=== PATIENT | female | born 1945 | race Caucasian/White ===

== ENCOUNTER 2025-02-16 10:51 | Outpatient (AMB) | payer MEDICARE, MEDICAID, SELFPAY ==
--- NOTE | 2025-02-16 10:53 | MHC.PC.OV ---
Vital Signs 02/16/25 11:02 Height 5 ft 2.2 in Weight 204 lb 8 oz BMI 37.2 BP 138/82 Blood Pressure Location Lt brachial Position Sitting Respiration 14 Pulse 61 Pulse Source Pulse Oximeter Temp 98.5 F Temp Source Oral Pulse Oximetry (%) 95 Oxygen Delivery Method Room Air Intake Visit Reasons: est care Intake Note: New patient visit Metrologist Required: No Allergies clopidogrel (From Plavix) Allergy (Severe, Verified 02/16/25 10:55) Rash Medication List - Last Reconciled 02/16/25 by Mariposa Cortes MD amlodipine 5 mg PO DAILY atorvastatin 40 mg PO DAILY blood sugar diagnostic ([employer] test strips) As directed cholecalciferol (vitamin D3) 25 mcg PO DAILY estradiol 0.01%(0.1mg/gram) 1 appful vaginal .three times a week ezetimibe 10 mg PO DAILY famotidine 20 mg PO BID glipizide ER 10 mg PO BID ketoconazole 2% topical losartan 50 mg PO DAILY rivaroxaban (Xarelto) 20 mg PO DAILY sotalol 80 mg PO BID Tobacco use date assessed: 02/16/25 Fall risk assessment: No Falls in past year Dental Screening Dental Screen Date: 02/16/25 Did you have a dental visit in the last 12 months?: No Did you have a dental problem in the last 6 months where you did not have access to dental care?: No Was dental information given to patient?: Patient declined HPI HPI Comments History of Present Illness Details 79 year old female with past medical history of diabetes, atrial fibrillation, CAD s/p PCI, hypertension presenting to [facility]. Transferring fertile. Have not received records CV: Follows with [facility], Dr Kang. On zetia, amlodipine, atorvastatin, losartan, sotalol and xarelto DM: On glipizide 10mg twice daily. Previous history of cataract surgery. Vision is still impaired Mammo: No longer completing Colonoscopy: No longer doing ROS CONSTITUTIONAL: Denies weight loss, fever and chills. HEENT: Denies changes in vision and hearing. RESPIRATORY: Denies SOB and cough. CV: Denies palpitations and CP GI: Denies abdominal pain, nausea, vomiting and diarrhea. : Denies dysuria and urinary frequency. MSK: Denies new myalgia and joint pain. SKIN: Denies rash and pruritus. NEUROLOGICAL: Denies headache PSYCHIATRIC: Denies recent changes in mood. PHYSICAL EXAM: GENERAL: Alert and oriented x 3. NAD EYES: EOMI. Anicteric. HENT: Moist mucous membranes. No scleral icterus. No cervical lymphadenopathy. LUNGS: Clear to auscultation bilaterally. CARDIOVASCULAR: Regular rate and rhythm. No murmur. No JVD. ABDOMEN: Soft, non-tender +bs EXTREMITIES: No edema. Non-tender. SKIN: No rashes or lesions. Warm. NEUROLOGIC: No focal neurological deficits. CN II-XII grossly intact PSYCHIATRIC: Cooperative. Appropriate mood and affect [facility] Surgical History History of ankle surgery History of cataract surgery History of coronary artery stent placement Hx of appendectomy H/O tubal ligation H/O section Family History Daughter Substance abuse Social History Housing: Apartment Alcohol intake: never Patient Tobacco Use Status: Former Tobacco user (quit in 1999) Years Smoked: 6 service: No Current occupational status: retired Cognitive needs: No Hearing needs: No Vision needs: Yes Questionnaire PHQ-9 Over the last 2 weeks, how often have you been bothered by any of the following problems? 1. Little interest or pleasure in doing things: not at all 2. Feeling down, depressed, or hopeless: not at all 3. Trouble falling or staying asleep, or sleeping too much: not at all 4. Feeling tired or having little energy: nearly every day 5. Poor appetite or overeating: not at all 6. Feeling bad about yourself - or that you are a failure or have let yourself or your family down: not at all 7. Trouble concentrating on things, such as reading the newspaper or watching television: not at all 8. Moving or speaking so slowly that other people could have noticed. Or the opposite - being so fidgety or restless that you have been moving around a lot more than usual: not at all 9. Thoughts that you would be better off or of hurting yourself in some way: not at all Total score: 3 Depression Screening Interpretation: Negative Depression Screening Done: Yes 45314 - PHQ-9 Billing: Yes Source: Developed by Drs. Adrian Chen, Tabatha Agiulera, Leodan Gomez and colleagues, with an educational allie from [employer]. Thrive Questionnaire I am a: Patient What is your living situation today?: I have a steady place to live Within the past 12 months, did the food you bought not last and you didn't have the money to get more?: Often true Within the past 12 months, did you worry whether your food would run out before you got money to buy more?: Sometimes True Do you have trouble paying for medicines?: No Do you have trouble getting transportation to medical appointments?: No Do you have trouble paying your heating and electricity bill?: Yes Do you have trouble taking care of your child, family member or friend?: No Do you have trouble with day-to-day activities such as bathing, preparing meals, shopping, managing finances, etc.?: No Are you currently unemployed and looking for a job?: No Are you interested in more education?: No Please select the resources that you would like help with: Food and Utilities Currently or been in a relationship where the following occur: No concerns reported THRIVE Score: 3 AUDIT C Alcohol Use Questionnaire (AUDIT-C) 1. How often do you have a drink containing alcohol?: Never Total Score: 0 AUSTYN-7 AMB Questionnaire AUSTYN-7 Feeling nervous, anxious, or on edge: 0 = Not at all Not being able to stop or control worryin = Not at all Worrying too much about different things: 0 = Not at all Trouble relaxin = Not at all Being so restless that it is hard to sit still: 0 = Not at all Becoming easily annoyed or irritable: 0 = Not at all Feeling afraid as if something awful might happen: 0 = Not at all Total AUSTYN-7 score (0-4 normal; 5-9 mild; 10-14 moderate; 15-21 severe): 0 Source: Developed by Drs. Adrian Chen, Leodan Ledesma and colleagues, with an educational allie from [employer]. Physical exam (Primary Care) Vital Signs: Last Vital Signs Temp 98.5 F 02/16/25 11:02 Pulse 61 02/16/25 11:02 Resp 14 02/16/25 11:02 BP 138/82 02/16/25 11:02 Pulse Ox 95 02/16/25 11:02 Oxygen Delivery Method Room Air 02/16/25 11:02 BMI result Body Mass Index 37.2 Tobacco/Smoking Status: Tobacco use Status Tobacco use date assessed 02/16/25 02/16/25 10:57 Patient Tobacco Use Status Former Tobacco user (quit in 02/16/25 11:01 1999) PHQ-9: PHQ-9 Score PHQ-9: Total score 3 02/16/25 11:09 Depression Screening Interpretation: Negative Currently or been in a relationship where the following occur: No concerns reported Coding Level of Care Code New Pt Level 4 (34454) Complex EM visit Add On G2211 Diagnoses Paroxysmal atrial fibrillation I48.0 Atrial fibrillation type: paroxysmal History of coronary artery stent placement Z95.5 Type 2 diabetes mellitus with diabetic cataract, 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 Diabetes mellitus type: type 2 Diabetes mellitus residential insulin use: without residential use Diabetes mellitus complication status: with ophthalmic complications Diabetes mellitus complication detail: with cataract Additional Codes PHQ-9 - 10045 - PHQ-9 Billing: Yes ([id number]) Assessment & Plan Assessment & Plan (1) Atrial fibrillation: Code(s): I48.91 - Unspecified atrial fibrillation Category: Medical Qualifiers: Atrial fibrillation type: paroxysmal Qualified Code(s): I48.0 - Paroxysmal atrial fibrillation (2) History of coronary artery stent placement: Code(s): Z95.5 - Presence of coronary angioplasty implant and graft Category: Surgical (3) Diabetes: Code(s): E11.9 - Type 2 diabetes mellitus without complications Category: Medical Qualifiers: Diabetes mellitus type: type 2 Diabetes mellitus residential insulin use: without residential use Diabetes mellitus complication status: with ophthalmic complications Diabetes mellitus complication detail: with cataract Qualified Code(s): E11.36 - Type 2 diabetes mellitus with diabetic cataract Plan 79 year old to establish care. Past medical, surgical, social and amily history reviewd Labs due and ordered CAD-BP controlled on current medications Orders: Orders Hemoglobin A1c Today E11.9 - Type 2 diabetes mellitus without complications, I48.91 - Unspecified atrial fibrillation Comprehensive Met. Panel Today E11.9 - Type 2 diabetes mellitus without complications, I48.91 - Unspecified atrial fibrillation Complete Blood Count Auto Diff Today E11.9 - Type 2 diabetes mellitus without complications, I48.91 - Unspecified atrial fibrillation, Z13.0 - Encounter for screening for diseases of the blood and blood-forming organs and certain disorders involving the immune mechanism, Z95.5 - Presence of coronary angioplasty implant and graft Comprehensive Met. Panel Today E11.9 - Type 2 diabetes mellitus without complications, I48.91 - Unspecified atrial fibrillation, Z13.0 - Encounter for screening for diseases of the blood and blood-forming organs and certain disorders involving the immune mechanism, Z95.5 - Presence of coronary angioplasty implant and graft Lipid Panel Today E11.9 - Type 2 diabetes mellitus without complications, I48.91 - Unspecified atrial fibrillation, Z13.0 - Encounter for screening for diseases of the blood and blood-forming organs and certain disorders involving the immune mechanism, Z95.5 - Presence of coronary angioplasty implant and graft Hemoglobin A1c Today E11.9 - Type 2 diabetes mellitus without complications, I48.91 - Unspecified atrial fibrillation, Z13.0 - Encounter for screening for diseases of the blood and blood-forming organs and certain disorders involving the immune mechanism, Z95.5 - Presence of coronary angioplasty implant and graft Microalbumin, Random (w Creat) Today E11.9 - Type 2 diabetes mellitus without complications, I48.91 - Unspecified atrial fibrillation, Z13.0 - Encounter for screening for diseases of the blood and blood-forming organs and certain disorders involving the immune mechanism, Z95.5 - Presence of coronary angioplasty implant and graft Medications: New estradiol 0.01%(0.1mg/gram) 1 appful vaginal .three times a week 42.5 grams 3RF
[2025-02-16 11:02] VITALS: BP 138/82; PULSE 61; RESP 14; TEMP 36.9; O2SAT 95; BMI 37.2
--- OUTSIDE RECORDS SUMMARY | 2025-02-16 12:08 | XMS_ITS | Clinical Summary ---
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 180 capsule 1 4 Active ezetimibe (ZETIA) 10 mg tablet Take 1 tablet (10 mg total) by mouth 1 (one) time each day. 90 tablet 1 4 Active losartan (COZAAR) 50 mg tablet TAKE 1 TABLET BY MOUTH EVERY DAY 90 tablet 2 4 Active ketoconazole (NIZORAL) 2 % shampoo Use for 3 times weekly as needed for itching 120 mL 5 4 Active amLODIPine (NORVASC) 5 mg tabletIndications :Other secondary hypertension TAKE 1 TABLET BY MOUTH EVERY DAY 90 tablet 1 5 Active rivaroxaban (XARELTO) 20 mg tablet Take 1 tablet (20 mg total) by mouth 1 (one) time each day with dinner. Take with food. Active atorvastatin (LIPITOR) 10 mg tablet Take 1 tablet (10 mg total) by mouth at bedtime. Active sotaloL (BETAPACE) 80 mg tablet Take 1 tablet (80 mg total) by mouth 2 (two) times a day. 180 tablet 3 5 12/24/19 26 Active glipiZIDE (GLUCOTROL XL) 10 mg 24 hr tablet TAKE 1 TABLET BY MOUTH TWICE A DAY 60 tablet 5 Active famotidine (PEPCID) 20 mg tablet TAKE 1 TABLET BY MOUTH TWICE A DAY 180 tablet 5 Active atorvastatin (LIPITOR) 40 mg tablet TAKE 1 TABLET BY MOUTH EVERY DAY 90 tablet 5 Active famotidine (PEPCID) 20 mg tablet Take 1 tablet (20 mg total) by mouth 2 (two) times a day. 5 01/29/20 25 Discontinu ed(Melanielica te order) Active Problems Problem Noted Date Diagnosed Date SOB (shortness of breath) 12/09/2024 A-fib (CMS/HCC V24, CMS/HCC V28) 12/09/2024 Assessment & Plan (01/07/2025 11:38 AM EDT): Patient denies perception of recurrence of arrhythmia since she was last in our office. She will continue on her current dose of sotalol 80 mg twice daily. She continues to be anticoagulated with Xarelto for stroke reduction. Educated on risks and benefits of continuing with anticoagulation including increased risk for hemorrhage and decreased risk for stroke. Encouraged to seek emergent medical attention should the patient sustain a fall involving a head strike. The patient understands these risks and agrees to continue. Orders: ECG 12 lead Assessment & Plan (12/09/2024 4:17 PM EDT): Presents in atrial fibrillation with a heart rate of [address] Rock and agreed to increase sotalol dose to 120mg twice daily. This was sent to her pharmacy of choice. We will also restore sinus rhythm in the form of a cardioversion to be scheduled on Saturday with Dr. Kang. The patient ensures me she has absolutely not had any interruption in her anticoagulation therapy for greater than 4 weeks. I instructed the patient to go to the emergency room should she begin to experience worsening symptoms of dizziness lightheadedness, presyncope, syncope, palpitations, chest discomfort or breathlessness. She understands. I have given her lab slips to have preprocedure blood work drawn prior to her procedure on Saturday. I spoke to Bernardo who will reach out to the patient to get everything scheduled. Educated on risks and benefits of continuing with anticoagulation including increased risk for hemorrhage and decreased risk for stroke. Encouraged to seek emergent medical attention should the patient sustain a fall involving a head strike. The patient understands these risks and agrees to continue. Orders: sotaloL (Betapace) 120 mg tablet; Take 1 tablet (120 mg total) by mouth every 12 (twelve) hours. Basic metabolic panel; Future CBC and differential; Future Prothrombin time with INR; Future Cardioversion external; Future Primary hypertension 12/09/2024 Assessment & Plan (01/07/2025 11:38 AM EDT): Well-controlled during today's exam with a reading of 124/70. I am making no changes to her antihypertensive medications and she will continue on her current dose of amlodipine 5 mg as well as losartan 50 mg. Educated on the importance of diet lifestyle to help further assist in reducing blood pressure. The patient was encouraged to follow low-salt low-fat diet, make purposeful strides towards weight loss, and engage in routine aerobic exercise as tolerated. Assessment & Plan (12/09/2024 4:17 PM EDT): Mildly elevated during today's exam with reading of 142/90 however the patient does endorse significant anxiety being in the office. She will continue on her current dose of losartan and amlodipine. Educated on the importance of diet lifestyle to help further assist in reducing blood pressure. The patient was encouraged to follow low-salt low-fat diet, make purposeful strides towards weight loss, and engage in routine aerobic exercise as tolerated. Encounters Date Type Department Care Team Description 01/07/2025 11:10 AM EDT Office Visit [facility] Cardiology [facility] [address] [place] [id number] Leanne Ricci NP Paroxysmal atrial fibrillation (CMS/HCC V24, CMS/HCC V28) (Primary Dx); Primary hypertension 12/09/2024 2:10 PM EDT Office Visit [facility] Cardiology [facility] [address] [place] [id number] Leanne Ricci NP Tachycardia (Primary Dx); Paroxysmal atrial fibrillation (CMS/HCC V24, CMS/HCC V28); Primary hypertension 12/09/2024 Telephone [facility] Cardiology [facility] [address] [place] [address] Diogenes Zarate MD 12/09/2024 Telephone [facility] Cardiology [facility] [address] [place] [address] Thang Kang MD Atrial Fibrillation; Shortness of Breath from Last 3 Months Surgical History Surgery Date Site/Laterality Comments CYSTOSCOPY PROCEDURE: [place] CYSTOURETHROSCOPY; COMMENT: for bladder tumor APPENDECTOMY PROCEDURE: HISTORICAL APPENDECTOMY SECTION PROCEDURE: HISTORICAL DELIVERY; COMMENT: mars Garcia ANKLE SURGERY PROCEDURE: HISTORICAL ANKLE SURGERY; COMMENT: jonny kilgore surgery COLONOSCOPY 04/20/2015 PROCEDURE: HISTORICAL COLONOSCOPY; COMMENT: jac, repeat 5 years Medical History Medical History Date Comments Hyperlipidemia 11/19/2016 DX:Hyperlipidemi a HTN (hypertension) 11/19/2016 DX:HTN (hyper tension) CAD (coronary artery disease) 11/19/2016 DX :CAD (coronary artery disease) Old [place] (myocardial infarction) 11/19/2016 D X:Old NC (myocardial infarction); COMMENT: S/p stent Vitamin D deficiency 12/23/2016 DX:Vitamin D deficiency GERD (gastroesophageal reflux disease) 7 DX:GERD (gastroesophageal reflux disease) Osteoporosis 12/23/2016 DX:Osteoporosis Atrial fibrillation (CMS/HCC V24, CMS/HCC V28) 01/21/2018 DX:Atrial fibrillation (HCC) Prediabetes 04/25/2018 DX:Prediabetes ONEIDA (obstructive sleep apnea) 04/25/2018 DX :ONEIDA (obstructive sleep apnea) Bladder cancer (CMS/HCC V24, CMS/HCC V28) 2017 DX:Bladder cancer (HCC) Family History Medical History Relation Name Comments Other: vaginal cancer Daughter 1 Coronary artery disease Daughter 2 Heart attack Father Lung cancer Mother Colon cancer Paternal Grandmother Coronary artery disease Son Heart attack Son Breast cancer Neg Hx Relation Name Status Comments Daughter 1 Daughter 2 Alive Father Mother Paternal Grandmother Son Alive Social History Tobacco Use Types Packs/Day Years Used Date Smoking Tobacco: Former Cigarettes Q uit: 07/29/1999 Smokeless Tobacco: Never Alcohol Use Standard Drinks/Week Comments No 0 (1 standard drink = 0.6 oz pur e alcohol) Comments Unknown Sex and Gender Information Value Date Recorded Sex Assigned at Female 06/17/2024 9:28 AM EST Legal Sex Female 8:08 PM EST Gender Identity Female 06/17/2024 9:28 AM EST Sexual Orientation Not on file Obstetrics History Last Filed Vital Signs Vital Sign Reading Time Taken Comments Blood Pressure 124/70 01/07/2025 11:16 AM EDT Pulse 59 01/07/2025 11:16 AM EDT Temperature - - Respiratory Rate - - Oxygen Saturation 92% 01/07/2025 11:16 AM EDT Inhaled Oxygen Concentration - - Weight 92.5 kg (204 lb) 01/07/2025 11:16 AM EDT Height 160 cm (5' 3 ) 01/07/2025 11:16 AM EDT Body Mass Index 36.14 01/07/2025 11:16 AM EDT Plan of Treatment Health Maintenance Due Date Last Done Comments Diabetes: Annual GFR (Glomerular Filtration Rate) 1946 Diabetes: Annual Foot Exam 1956 Diabetes: Annual Retina Eye Exam 1956 Zoster Vaccines (1 of 2) 1965 RSV Immunization Adult Patients (1 - 1-dose 75+ series) 2021 Cholesterol Screening (Lipid Panel) 07/07/2022 Falls Risk Assessment 07/07/2022 Hepatitis C Screening 07/07/2022 Medicare Annual Wellness Visit 07/07/2022 Social Influencers of Health Screening 07/07/2022 Diabetes: Annual Urine Albumin-Creatinine Ratio (uACR) 07/08/2022 Diabetes: Blood Sugar Control Test (HGBA1C) 07/08/2022 Hypertension/CHF/CAD Annual BMP Blood Test 07/08/2022 COVID-19 Vaccine ( season) 2024 11/05/2021, 10/12/2021, 11/27/2020, Additional history exists Depression Screening 07/29/2024 Influenza Vaccine (#1) 2025 , 05/07/2022, 06/09/2021, Additional history exists Osteoporosis Screening (Bone Density Screening) 02/21/2027 02/21/2017 DTaP,Tdap,and Td Vaccines (2 - Td or Tdap) 04/25/2028 04/25/2018 Pneumococcal Vaccine: 50+ Years Completed 04/25/2018, 03/30/2015 HIB Vaccines Aged Out No longer eligi ble based on patient's age to complete this topic HPV Vaccines Aged Out No longer eligi ble based on patient's age to complete this topic Hepatitis A Vaccines Aged Out No long er eligible based on patient's age to complete this topic Hepatitis B Vaccines Aged Out No long er eligible based on patient's age to complete this topic IPV Vaccines Aged Out No longer eligi ble based on patient's age to complete this topic MMR Vaccines Aged Out No longer eligi ble based on patient's age to complete this topic Meningococcal ACWY Vaccine Aged Out N o longer eligible based on patient's age to complete this topic Meningococcal B Vaccine Aged Out No l onger eligible based on patient's age to complete this topic RSV Immunization Patients Under 20 months Aged Out No longer eligible based on patient's age to complete this topic Varicella Vaccines Aged Out No longer eligible based on patient's age to complete this topic Procedures Procedure Name Priority Date/Time Associated Diagnosis Comments ECG 12-LEAD Routine 01/07/2025 11:38 AM EDT Paroxysmal atrial fibrillation (CMS/HCC V24, CMS/HCC V28) ECG 12-LEAD Routine 12/09/2024 4:17 PM EDT Tachycardia EXTERNAL CLINICAL LAB Routine 12/09/2024 9:07 AM EDT DXA BONE DENSITY STUDY 1+ SITS AXIAL SKEL Routine 02/21/2017 4:08 PM EDT Age-related osteoporosis without current pathological fracture from Last 3 Months or Most Recently Relevant to Health Maintenance Results * ECG 12 lead (01/07/2025 11:38 AM EDT) Only the most recent of2 resultswithin the time period is included. Ventricular Rate ECG 59 BPM GEMUSE Atrial Rate 59 BPM GEMUSE P-R Interval 162 ms GEMUSE QRS Duration 78 ms GEMUSE Q-T Interval 454 ms GEMUSE QTc 449 ms GEMUSE P Wave Wanda 59 degrees GEMUSE R Wanda 14 degrees GEMUSE T Wanda 46 degrees GEMUSE ECG Interpretation Sinus bradycardia Low voltage QRS Nonspecific T wave abnormality Abnormal ECG When compared with ECG of 09-DEC-2024 14:13, Sinus rhythm has replaced Atrial fibrillation Vent. rate has decreased BY 44 BPM Nonspecific T wave abnormality no longer evident in Inferior leads Nonspecific T wave abnormality no longer evident in Lateral leads QT has lengthened Confirmed by MD Kang Christopher ([id number]) on 01/11/2025 9:34:00 AM GEMUSE 01/07/2025 11:2 1 AM EDT 01/11/2025 9:34 AM EDT Leanne Ricci NP ECG ORDERABLES Edited Result - Final GEMUSE * External clinical lab (12/09/2024 9:07 AM EDT) Historical Provider LAB BLOOD ORDERABLES Edit ed Result - Final * DXA BONE DENSITY STUDY 1+ SITS AXIAL SKEL (02/21/2017 4:08 PM EDT) Anatomical Region Laterality Modality Bone Densitometr y 01/21/2017 1:33 PM EDT Narrative 02/22/2017 1:06 PM EDT BONE DENSITY Lumbar Spine T-score is -1.2 (SD relative to 20-29 y/o adult) Z-score is +1.0 (SD relative to age matched peers) This is consistent with osteopenia by criteria defined by the WHO. Left Hip T-score is -3.1 Z-score is -1.2 This is consistent with osteoporosis by criteria defined by the WHO. Impression: Based on the World Health Organization criteria, Precious Glover should be classified as having osteoporosis. [facility] Department of Internal Medicine recommends using National Osteoporosis Foundation (NOF) guidelines in treatment decisions related to osteoporosis. NOF guidelines suggest considering treatment for postmenopausal women and men aged 50 or older presenting with the following: History of hip or vertebral fracture. T-score less than or equal to -2.5 (DXA) at the femoral neck, total hip, or spine, after appropriate evaluation to exclude secondary causes. Low bone mass (T-score between -1.0 and -2.5 at the femoral neck or spine) AND a 10-year probability of a hip fracture greater than or equal to 3% OR a 10-year probability of a major osteoporosis-related fracture greater than or equal to 20% based on the [place]-adapted WHO algorithm Please note that all treatment decisions require clinical judgment and consideration of individual patient factors, including patient preferences, co-morbidities, previous drug use, risk factors not captured in the FRAX model (e.g., frailty, falls, vitamin D deficiency, increased bone turnover, interval significant decline in bone density) and possible under- or over-estimation of fracture risk by FRAX. Procedure Note Neville Smith MD - 08/30/2023 BONE DENSITY Lumbar Spine T-score is -1.2 (SD relative to 20-29 y/o adult) Z-score is +1.0 (SD relative to age matched peers) This is consistent with osteopenia by criteria defined by the WHO. Left Hip T-score is -3.1 Z-score is -1.2 This is consistent with osteoporosis by criteria defined by the WHO. Impression: Based on the World Health Organization criteria, Precious Glover should beclassified as having osteoporosis. [facility] Department of Internal Medicine recommendsusing National Osteoporosis Foundation (NOF) guidelines in treatmentdecisions related to osteoporosis. NOF guidelines suggest consideringtreatment for postmenopausal women and men aged 50 or older presentingwith the following: History of hip or vertebral fracture. T-score less than or equal to -2.5 (DXA) at the femoral neck, total hip,or spine, after appropriate evaluation to exclude secondary causes. Low bone mass (T-score between -1.0 and -2.5 at the femoral neck or spine)AND a 10-year probability of a hip fracture greater than or equal to 3% ORa 10-year probability of a major osteoporosis-related fracture greaterthan or equal to 20% based on the [place]-adapted WHO algorithm Please note that all treatment decisions require clinical judgment andconsideration of individual patient factors, including patientpreferences, co-morbidities, previous drug use, risk factors not capturedin the FRAX model (e.g., frailty, falls, vitamin D deficiency, increasedbone turnover, interval significant decline in bone density) and possibleunder- or over-estimation of fracture risk by FRAX. 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
== END 2025-02-16 11:20 | disposition home or self-care (01) ==
LOC: HO.HMCFM 10:52
PROVIDERS: PCP Internal Medicine; Visit Provider Internal Medicine
DX: I48.0 Paroxysmal atrial fibrillation (principal); Z95.5 Presence of coronary angioplasty implant and graft; E11.36 Type 2 diabetes mellitus with diabetic cataract

== ENCOUNTER 2025-02-16 11:28 | Outpatient (REF) | payer MEDICARE, SELFPAY ==
[2025-02-16 14:26] LABS: Hemoglobin A1C 203.6881 umol/L; Total Hemoglobin (HGBA1C) 3526.6149 umol/L
[2025-02-16 14:48] LABS: Alanine Aminotransferase 17 U/L (0-31); Albumin Level 4.2 g/dL (3.5-5.0); Alkaline Phosphatase 110 U/L (39-117); Anion Gap 10 (12-20); Aspartate Amino Transferase 23 U/L (5-31); Blood Urea Nitrogen 15 mg/dL (9-16); Calcium 8.9 mg/dL (8.4-10.2); Carbon Dioxide 26 mmol/L (22-29); Chloride 108 mmol/L (96-108); Cholesterol 117 mg/dL (<200); Estimated Glomerular Filt Rate > 60; HDL Cholesterol 39 mg/dL (>40); Potassium 4.2 mmol/L (3.3-5.1); Sodium 140 mmol/L (135-145); Total Protein 7.1 g/dL (6.5-8.0); Triglycerides 104 mg/dL (<150)
[2025-02-16 15:00] LABS: Microalbum/Creatinine Ratio Ur 38.8 ug/mg cr (<30)
== END 2025-02-16 11:29 | disposition home or self-care (01) ==
LOC: HO.WFDLDS 11:28
PROVIDERS: Visit Provider Internal Medicine
DX: I48.0 Paroxysmal atrial fibrillation (principal); E11.36 Type 2 diabetes mellitus with diabetic cataract; Z95.5 Presence of coronary angioplasty implant and graft; Z13.31 Encounter for screening for depression; Z13.0 Encounter for screening for diseases of the blood and blood-forming organs and certain disorders involving the immune mechanism
CPT/HCPCS: 36415; 80053; 80061; 82043; 82570; 83036; 96127; 99202

== ENCOUNTER 2025-05-17 07:44 | Outpatient (REF) | payer MEDICARE, MEDICAID, SELFPAY ==
--- OUTSIDE RECORDS SUMMARY | 2025-05-17 07:49 | XMS_ITS | Clinical Summary ---
Author Organization [address] [place] [address] [place] [phone] Phone Care Team Providers Care Camp Program Director Name Role Phone Mariposa Cortes MD Primary Care Provider Allergies Active Allergy Reactions Criticality Noted Date Comments Clopidogrel 11/19/2016 Swelling,, rash Medications docusate sodium (COLACE) 100 mg capsule TAKE 1 TABLET BY MOUTH 2 TIMES DAILY NEEDED (CONSTIPATI ON). 180 capsule 1 07/03/20 24 Active ezetimibe (ZETIA) 10 mg tablet Take 1 tablet (10 mg total) by mouth 1 (one) time each day. 90 tablet 1 07/03/20 24 Active losartan (COZAAR) 50 mg tablet TAKE 1 TABLET BY MOUTH EVERY DAY 90 tablet 2 07/02/20 24 Active ketoconazole (NIZORAL) 2 % shampoo Use for 3 times weekly as needed for itching 120 mL 5 07/02/20 24 Active amLODIPine (NORVASC) 5 mg tabletIndication s:Other secondary hypertension TAKE 1 TABLET BY MOUTH EVERY DAY 90 tablet 1 09/29/19 25 Active atorvastatin (LIPITOR) 10 mg tablet Take 1 tablet (10 mg total) by mouth at bedtime. Active sotaloL (BETAPACE) 80 mg tablet Take 1 tablet (80 mg total) by mouth 2 (two) times a day. 180 tablet 3 12/24/19 25 026 Active glipiZIDE (GLUCOTROL XL) 10 mg 24 hr tablet TAKE 1 TABLET BY MOUTH TWICE A DAY 60 tablet 01/14/20 25 Active famotidine (PEPCID) 20 mg tablet TAKE 1 TABLET BY MOUTH TWICE A DAY 180 tablet 01/29/20 25 Active atorvastatin (LIPITOR) 40 mg tablet TAKE 1 TABLET BY MOUTH EVERY DAY 90 tablet 02/05/20 25 Active Xarelto 20 mg tablet TAKE 1 TABLET BY MOUTH EVERY DAY 90 tablet 3 05/11/20 25 Active rivaroxaban (XARELTO) 20 mg tablet Take 1 tablet (20 mg total) by mouth 1 (one) time each day with dinner. Take with food. 025 Discontinued Active Problems Problem Noted Date Diagnosed Date SOB (shortness of breath) 12/09/2024 A-fib ([facility] V24, [facility] V28) 12/09/2024 Assessment & Plan (01/07/2025 11:38 [...] Encounters Date Type Department Care Team Description 05/11/2025 Telephone [facility] [address] [facility] [address] [place] [address] Thang Kang MD from Last 3 Months Surgical History Surgery Date Site/Laterality Comments CYSTOSCOPY PROCEDURE: [place] CYSTOURETHROSCOPY; COMMENT: for bladder tumor APPENDECTOMY PROCEDURE: HISTORICAL APPENDECTOMY SECTION PROCEDURE: HISTORICAL DELIVERY; COMMENT: times 2 ANKLE SURGERY PROCEDURE: HISTORICAL ANKLE SURGERY; COMMENT: jonny kilgore surgery COLONOSCOPY 04/20/2015 PROCEDURE: HISTORICAL COLONOSCOPY; COMMENT: tics, repeat 5 years Medical History Medical History Date Comments Hyperlipidemia 11/19/2016 DX:Hyperlipidemi a HTN (hypertension) 11/19/2016 DX:HTN (hyper tension) CAD (coronary artery disease) 11/19/2016 DX :CAD (coronary artery disease) Old CT (myocardial infarction) 11/19/2016 D X:Old CT (myocardial infarction); COMMENT: S/p stent Vitamin D deficiency 12/23/2016 DX:Vitamin D deficiency GERD (gastroesophageal reflux disease) DX:GERD (gastroesophageal reflux disease) Osteoporosis 12/23/2016 DX:Osteoporosis Atrial fibrillation ([facility] V24, [facility] V28) 01/21/2018 DX:Atrial fibrillation (HCC) Prediabetes 04/25/2018 DX:Prediabetes ONEIDA (obstructive sleep apnea) 04/25/2018 DX :ONEIDA (obstructive sleep apnea) Bladder cancer ([facility] V24, [facility] V28) 2017 DX:Bladder cancer (HCC) Family History [...] 07/08/2022 Hypertension/CHF/CAD Annual BMP Blood Test 07/08/2022 Depression Screening 07/29/2024 COVID-19 Vaccine ( season) 2025 11/05/2021, 10/12/2021, 11/27/2020, Additional history exists Influenza Vaccine (#1) 2025 , 05/07/2022, 06/09/2021, [...] Procedure Name Priority Date/Time Associated Diagnosis Comments DXA BONE DENSITY STUDY 1+ SITS AXIAL SKEL Routine 02/21/2017 4:08 PM EDT Age-related osteoporosis without current pathological fracture from Last 3 Months or Most Recently Relevant to Health Maintenance Results * DXA BONE DENSITY STUDY 1+ SITS [...] should be classified as having osteoporosis. [facility] Department of Internal Medicine recommends using [...] on the World Health Organization criteria, Precious Phillysher should beclassified as having osteoporosis. [facility] Department of Internal Medicine recommendsusing National [...] Insurance MEDICARE MEDICAID - [place] Care Teams Camp Program Director Relationship Specialty Start Date End Date Mariposa Cortes MD PCP - General Internal Medicine 12/09/24
--- OUTSIDE RECORDS SUMMARY | 2025-05-17 07:49 | XMS_ITS ---
Author Name [facility] Organization Unknown Care Team Organization Name Specialty Phone Email Start Date End Da te [facility] 03/17/2025 [facility] Organization Jaja Yee MD Primary Care 06/05/2022 03/16/2024
[2025-05-17 11:10] LABS: MANUAL DIFF FLAG NO
[2025-05-17 11:15] LABS: Hematocrit 40.4 % (37.0-47.0); Hemoglobin 13.4 g/dl (12.0-16.0); Imm Gran Abs Auto 0.02 X10*3/uL (0.00-0.03); Imm Gran Pct Auto 0.2 % (0.0-0.4); Lymphocytes Absolute Auto 2.7 X10*3/uL (1.2-4.9); Mean Corpuscular HGB Conc 33.2 g/dl (31.0-35.0); Mean Corpuscular Hemoglobin 30.9 pg (27.0-33.0); Mean Corpuscular Volume 93.3 fL (80.0-98.0); NRBC Abs Auto 0.000 X10*3/uL (0.0-0.012); NRBC Pct Auto 0.0 /100WBC (0.0-0.2); Platelet Count 305 X10*3/uL (160-400); Red Blood Count 4.33 X10*6/uL (4.20-5.50); White Blood Count 8.3 X10*3/uL (4.8-10.8)
[2025-05-17 11:51] LABS: Alanine Aminotransferase 16 U/L (0-31); Albumin Level 4.0 g/dL (3.5-5.0); Alkaline Phosphatase 111 U/L (39-117); Anion Gap 13 (12-20); Aspartate Amino Transferase 21 U/L (5-31); Blood Urea Nitrogen 14 mg/dL (9-16); Calcium 8.5 mg/dL (8.4-10.2); Carbon Dioxide 23 mmol/L (22-29); Chloride 108 mmol/L (96-108); Estimated Glomerular Filt Rate > 60; Potassium 4.0 mmol/L (3.3-5.1); Sodium 140 mmol/L (135-145); Total Protein 6.9 g/dL (6.5-8.0)
== END 2025-05-17 07:45 | disposition home or self-care (01) ==
LOC: HO.WFDLDS 07:44
PROVIDERS: Visit Provider Internal Medicine
DX: Z13.0 Encounter for screening for diseases of the blood and blood-forming organs and certain disorders involving the immune mechanism (principal); E11.9 Type 2 diabetes mellitus without complications; I48.91 Unspecified atrial fibrillation; Z95.5 Presence of coronary angioplasty implant and graft
CPT/HCPCS: 36415; 80053; 83036; 85025

== ENCOUNTER 2025-05-24 13:44 | Outpatient (AMB) | payer MEDICARE, MEDICAID, SELFPAY ==
--- NOTE | 2025-05-24 13:57 | A.OFFPC_ITS ---
Vital Signs 05/24/25 14:02 Height 5 ft 2.2 in Weight 203 lb BMI 36.9 BP 112/64 Blood Pressure Location Rt brachial Position Sitting Respiration 14 Pulse 58 Pulse Source Pulse Oximeter Temp 98 F Temp Source Oral Pulse Oximetry (%) 95 Oxygen Delivery Method Room Air Intake Visit Reasons: 3 mos Intake Note: 3 mos f/u Mallet And Die Cutter Required: No Allergies clopidogrel (From Plavix) Allergy (Severe, Verified 05/24/25 13:59) Rash Tobacco use date assessed: 05/24/25 Fall risk assessment: No Falls in past year Last assessed Fall Risk: 05/24/25 Dental Screening Dental Screen Date: 05/24/25 Did you have a dental visit in the last 12 months?: No Did you have a dental problem in the last 6 months where you did not have access to dental care?: No Was dental information given to patient?: No HPI HPI Comments History of Present Illness Details 79 year old female with past medical his tory of diabetes, atrial fibrillation, CAD s/p PCI, hypertension presenting for follow up. Have not received records from [facility] CV: Follows with [facility], Dr Kang. On zetia, amlodipine, atorvastatin, losartan, sotalol and xarelto DM: On glipizide 10mg twice daily. A1C 7.9%. Previous history of cataract surgery. Vision is still impaired. Was previously on metformin but had GI side effects-diarrhea. She does not remember her previous dosing Since constipated. some small BM Prune juice, fruits. Tried colace, dulcolax Mammo: No longer completing Colonoscopy: No longer doing ROS CONSTITUTIONAL: Denies weight loss, fever and chills. HEENT: Denies changes in vision and hearing. RESPIRATORY: Denies SOB and cough. CV: Denies palpitations and CP GI: see HPI : Denies dysuria and urinary frequency. MSK: Denies new myalgia and joint pain. SKIN: Denies rash and pruritus. NEUROLOGICAL: Denies headache PSYCHIATRIC: Denies recent changes in mood. PHYSICAL EXAM: GENERAL: Alert and oriented x 3. NAD EYES: EOMI. Anicteric. HENT: Moist mucous membranes. No scleral icterus. No cervical lymphadenopathy. LUNGS: Clear to auscultation bilaterally. CARDIOVASCULAR: Regular rate and rhythm. No murmur. No JVD. ABDOMEN: Soft, non-tender +bs EXTREMITIES: No edema. Non-tender. SKIN: No rashes or lesions. Warm. NEUROLOGIC: No focal neurological deficits. CN II-XII grossly intact PSYCHIATRIC: Cooperative. Appropriate mood and affect [facility] Surgical History History of ankle surgery History of cataract surgery History of coronary artery stent placement Hx of appendectomy H/O tubal ligation H/O section Family History Daughter Substance abuse Social History Housing: Apartment Alcohol intake: never Patient Tobacco Use Status: Former Tobacco user (quit in 1999) Years Smoked: 6 e-Cigarette/Vaping Use: Never Used service: No Current occupational status: retired Cognitive needs: No Hearing needs: No Vision needs: Yes Questionnaire Thrive Questionnaire Date Thrive assessed: 02/16/25 I am a: Patient What is your living situation today?: I have a steady place to live Within the past 12 months, did the food you bought not last and you didn't have the money to get more?: Often true Within the past 12 months, did you worry whether your food would run out before you got money to buy more?: Sometimes True Do you have trouble paying for medicines?: No Do you have trouble getting transportation to medical appointments?: No Do you have trouble paying your heating and electricity bill?: Yes Do you have trouble taking care of your child, family member or friend?: No Do you have trouble with day-to-day activities such as bathing, preparing meals, shopping, managing finances, etc.?: No Are you currently unemployed and looking for a job?: No Are you interested in more education?: No Currently or been in a relationship where the following occur: No concerns reported THRIVE Score: 3 Physical exam (Primary Care) Vital Signs: Last Vital Signs Temp 98 F 05/24/25 14:02 Pulse 58 05/24/25 14:02 Resp 14 05/24/25 14:02 BP 112/64 05/24/25 14:02 Pulse Ox 95 05/24/25 14:02 Oxygen Delivery Method Room Air 05/24/25 14:02 BMI result Body Mass Index 36.9 Tobacco/Smoking Status: Tobacco use Status Tobacco use date assessed 05/24/25 05/24/25 14:04 Patient Tobacco Use Status Former Tobacco user (quit in 05/24/25 14:04 1999) e-Cigarette/Vaping Use Never Used 05/24/25 14:04 Thrive Assessment: Date of Thrive Assessment Date Thrive assessed 02/16/25 05/24/25 14:04 Currently or been in a relationship where the following occur: No concerns reported Coding Level of Care Code Est Pt Level 4 (01537) Complex EM visit Add On G2211 Diagnoses Type 2 diabetes mellitus with diabetic cataract, without long-term current use of insulin 36 Diabetes mellitus type: type 2 Diabetes mellitus communications tech insulin use: without communications tech use Diabetes mellitus complication status: with ophthalmic complications Diabetes mellitus complication detail: with cataract History of coronary artery stent placement Z95.5 Paroxysmal atrial fibrillation I48.0 Atrial fibrillation type: paroxysmal Assessment & Plan Assessment & Plan (1) Diabetes: Code(s): E11.9 - Type 2 diabetes mellitus without complications Category: Medical Qualifiers: Diabetes mellitus type: type 2 Diabetes mellitus fdc insulin use: without communications tech use Diabetes mellitus complication status: with ophthalmic complications Diabetes mellitus complication detail: with cataract Qualified Code(s): E11.36 - Type 2 diabetes mellitus with diabetic cataract (2) History of coronary artery stent placement: Code(s): Z95.5 - Presence of coronary angioplasty implant and graft Category: Surgical (3) Atrial fibrillation: Code(s): I48.91 - Unspecified atrial fibrillation Category: Medical Qualifiers: Atrial fibrillation type: paroxysmal Qualified Code(s): I48.0 - Paroxysmal atrial fibrillation Plan DM-uncontrolled. Add trulicity 0.75mg. Ozempic would be good for CV but requires PA. continue annual eye exam. Needs new glucometer hers has malfunctioned. T reated hypoglycemia by rules of 15s HTN/CAD-blood pressure controlled on current medications. Efforts toward weight loss Orders: Orders Microalbumin, Random (w Creat) 3 Months .36 - Type 2 diabetes mellitus with diabetic cataract Comprehensive Met. Panel 3 Months 36 - Type 2 diabetes mellitus with diabetic cataract Hemoglobin A1c 3 Months 36 - Type 2 diabetes mellitus with diabetic cataract Medications: New Accu-Chek Guide Glucose Meter (blood-glucose meter) once daily 1 ea 0RF NS E11.36 - Type 2 diabetes mellitus with diabetic cataract Accu-Chek Guide test strips (blood sugar diagnostic) once daily 100 ea 3RF NS E11.36 - Type 2 diabetes mellitus with diabetic cataract Accu-Chek Softclix Lancets (lancets) As directed 100 ea 0RF NS E11.36 - Type 2 diabetes mellitus with diabetic cataract, I48.0 - Paroxysmal atrial fibrillation, Z95.5 - Presence of coronary angioplasty implant and graft lactulose 20 grams (30 mL) PO TID PRN 473 mL 3RF constipation dulaglutide (Trulicity) 0.75 mg (0.5 mL) subcut QWEEK 2 mL 3RF
[2025-05-24 14:02] VITALS: BP 112/64; PULSE 58; RESP 14; TEMP 36.6; O2SAT 95; BMI 36.9
--- OUTSIDE RECORDS SUMMARY | 2025-05-24 17:25 | XMS_ITS | Encounter Summary ---
Author Organization [facility] Address [address] [place] [address] Care Team Providers Care Cnc Operator Name Role Phone Steffen Morrissey MD Primary Care Provider Unavailable Thang Kang MD Unavailable Cinthia Molina PA-C Unavailable Unavailab Andriy Farrell DO Primary Care Provider Unavaila John Velasquez MD Unavailable [phone] Alicia Burnham NP Unavailable [phone] Artemio Tellez Unavailable Unavailable oLu Baptiste MD Primary Care Provider Un available Encounter Details Date Type Department Care Team Description 02/24/2018 Bulldozer Mechanic Report Medical Records [address] [place] [address] Thang Kang MD 300 [facility] [address] [place] [address] Social History Tobacco Use Types Packs/Day Years Used Date Smoking Tobacco: Former Smokeless Tobacco: Never Comments:smoked x 40yrs x 1 ppd Alcohol Use Standard Drinks/Week Comments No 0 (1 standard drink = 0.6 oz pur e alcohol) Alcohol Habits Answer Date Recorded How often do you have a drin k containing alcohol? Never 08/16/2023 How many drinks containing a lcohol do you have on a typical day when you are drinking? Patient does not drink 08/16/2023 How often do you have six or more drinks on one occasion? Never 08/16/2023 Social Isolation Answer Date Recorded In a typical week, how many times do you talk on the phone with family, friends, or neighbors? More than three times a week 08/16/2023 How often do you get togethe r with friends or relatives? More than three times a week 08/16/2023 How often do you attend chur ch or orthodoxy services? Never 08/16/2023 Do you belong to any clubs o r organizations such as muslim groups, unions, fraternal or athletic groups, or school groups? No 08/16/2023 How often do you attend meet ings of the clubs or organizations you belong to? Never 08/16/2023 Are you now , , , , never or living with a partner? 08/16/2023 Physical Activity Answer Date Recorded On average, how many days pe r week do you engage in moderate to strenuous exercise (like walking fast, running, jogging, dancing, swimming, biking, or other activities that cause a light or heavy sweat)? 4 days 08/16/2023 On average, how many minutes do you engage in exercise at this level? 20 min 08/16/2023 Stress Answer Date Recorded Do you feel stress - tense, restless, nervous, or anxious, or unable to sleep at night because your mind is troubled all the time - these days? Not at all 08/16/2023 Financial Resource Strain Answer Date R ecorded How hard is it for you to pa y for the very basics like food, housing, medical care, and heating? Not hard at all 08/16/2023 Intimate Partner Violence Answer Date R ecorded Within the last year, have y ou been afraid of your partner or ex-partner? No 08/16/2023 Within the last year, have y ou been humiliated or emotionally abused in other ways by your partner or ex-partner? No Within the last year, have y ou been kicked, hit, slapped, or otherwise physically hurt by your partner or ex-partner? No 08/16/2023 Within the last year, have y ou been raped or forced to have any kind of sexual activity by your partner or ex-partner? No 08/16/2023 Food Insecurity Answer Date Recorded Within the past 12 months, y ou worried that your food would run out before you got money to buy more. Never true 08/16/2023 Within the past 12 months, t he food you bought just didn't last and you didn't have money to get more. Never true 08/16/2023 Transportation Needs Answer Date Record ed In the past 12 months, has l ack of transportation kept you from medical appointments or from getting medications? No 07/29 In the past 12 months, has l ack of transportation kept you from meetings, work, or getting things needed for daily living? No 08/16/2023 Housing Stability Answer Date Recorded In the last 12 months, was t here a time when you were not able to pay the mortgage or rent on time? No 08/16/2023 In the last 12 months, how many places have you lived? 1 08/16/2023 In the last 12 months, was t here a time when you did not have a steady place to sleep or slept in a prison (including now)? No 08/16/2023 Sex Assigned at Date Recorded Not on file Job Start Date Occupation Industry Not on file Not on file Not on file documented as of this encounter Plan of Treatment Not on file documented as of this encounter Visit Diagnoses Not on filedocumented in this encounter Care Teams Cnc Operator Relationship Specialty Start Date End Date Steffen Morrissey MD PCP - General Internal Medicine 11/06/1607/29 Andriy Zimmerman DO [address] [address] PCP - General Internal Medicine 08/17/21 12/04/23 Lou Baptiste MD [address] [address] PCP - General Internal Medicine 12/05/23 Thang Kang MD [address] [address] Housekeeper Manager Cardiovascular Disease 08/10/20 Cinthia Molina PA-C [address] [address] Cardiology 09/05/20 03/12/24 John Burleson MD [address] [address] Specialist Cardiology 12/06/21 Alicia Burnham NP [address] [address] Cardiology 12/06/21 Artemio Tellez [address] [address] Urology 06/08/22 [facility] urology 10/26/21 documented as of this encounter
--- OUTSIDE RECORDS SUMMARY | 2025-05-24 17:25 | XMS_ITS | Encounter Summary ---
Author Organization [facility] Address [address] [place] [address] Care Team Providers Care Silverware Etcher Name Role Phone Steffen Morrissey MD Primary Care Provider Unavailable Thang Kang MD Unavailable [phone] Cinthia Molina PA-C Unavailable Unavailab Andriy Farrell DO Primary Care Provider Unavaila John Velasquez MD Unavailable [phone] Alicia Burnham NP Unavailable [phone] Artemio Tellez Unavailable Unavailable Lou Baptiste MD Primary Care Provider Un available Reason for Visit * Reason Comments E-prescribe Rx Request Encounter Details Date Type Department Care Team Description 02/27/2021 Refill Adult Medicine [address] [address] Steffen Morrissey MD E-prescribe Rx Request Social History Tobacco Use Types Packs/Day Years [...] 08/16/2023 How often do you attend chur or scientology services? Never 08/16/2023 Do you belong to any clubs o r organizations such as tenriism groups, unions, fraternal or athletic groups, or [...] place to sleep or slept in a m[facility]p (including now)? No 08/16/2023 Sex Assigned at Date Recorded Not on file Job Start Date Occupation Industry Not on file Not on file Not on file documented as of this encounter Miscellaneous Notes * Telephone Encounter - [employer] - 02/28/2021 11:45 AM EDT Patient would like script to be: E-PRESCRIBED/FAXED TO PHARMACY ?? WHEN WAS THE PATIENT'S LAST APPOINTMENT IN ADULT MEDICINE? 09/07/2020 ?? WHEN WAS THE LAST TIME THE PATIENT SAW THEIR PCP? Same as above ?? Does patient have an upcoming appointment? Yes 05/26/2021 ?? (THE MEDICATION REQUESTED IS ON THE MED LIST ABOVE) All of the medications requested were on the CURRENT MEDS list ?? Did you check the Pharmacy information above?: YES ?? Patient wants: 30 -day supply ?? Is this a mail order prescription request ? NO ?? If the refill is from a FAXED refill request what is the RX # listed on the fax? N/A ?? Patients current insurance carrier is: [place] / [place] / Product Type: MEDICARE [id number] ? documented in this encounter Plan of Treatment Not on file documented as of this encounter Visit Diagnoses Not on filedocumented in this encounter Care Teams Silverware Etcher Relationship Specialty Start Date End Date Steffen Morrissey MD PCP - General Internal Medicine 11/06/1607/29 Andriy Zimmerman DO [address] [place] [address] PCP - General Internal Medicine 08/17/21 12/04/23 Lou Baptiste MD [address] [place] [address] PCP - General Internal Medicine 12/05/23 Thang Kang MD [address] [place] [address] Test Cell Technician Cardiovascular Disease 08/10/20 Cinthia Molina PA-C [address] [place] [address] Cardiology 09/05/20 03/12/24 John Burleson MD [address] [place] [address] Specialist Cardiology 12/06/21 Alicia Burnham NP [address] [place] [address] Cardiology 12/06/21 Artemio Tellez [address] [place] [address] Urology 06/08/22 [facility] urology 10/26/21 documented as of this encounter
--- OUTSIDE RECORDS SUMMARY | 2025-05-24 17:25 | XMS_ITS | Encounter Summary ---
Author Organization [facility] Address [address] [place] [address] Care Team Providers Care Inbound Customer Service Representative Name Role Phone Steffen Morrissey MD Primary Care Provider Unavailable Thang Kang MD Unavailable [phone] Cinthia Molina PA-C Unavailable Unavailab Andriy Farrell DO Primary Care Provider Unavaila John Velasquez MD Unavailable [phone] Alicia Burnham NP Unavailable [phone] Artemio Tellez Unavailable Unavailable Lou Baptiste MD Primary Care Provider Un available Encounter Details Date Type Department Care Team Description 03/17/2018 Orders Only Medical Records [address] [place] [address] Thang Kang MD 300 [facility] [address] [place] [address] Social History Tobacco Use Types Packs/Day Years [...] often do you attend chur ch or congregation services? Never 08/16/2023 Do you belong to any clubs o r organizations such as confucianism groups, unions, fraternal or athletic groups, or [...] place to sleep or slept in a skilled nursing (including now)? No 08/16/2023 Sex Assigned at Date Recorded Not on file Job Start Date Occupation Industry Not on file Not on file Not on file documented as of this encounter Plan of Treatment Not on file documented as of this encounter Procedures Procedure Name Priority Date/Time Associated Diagnosis Comments OUTSIDE ECHO Routine 03/12/2018 documented in this encounter Results * OUTSIDE ECHO (03/12/2018) Thang Kang MD CARDIOLOGY documented in this encounter Visit Diagnoses Not on filedocumented in this encounter Care Teams Inbound Customer Service Representative Relationship Specialty Start Date End Date Steffen Morrissey MD PCP - General Internal Medicine 11/06/1607/29 Andriy Zimmerman, [address] [place] [address] PCP - General Internal Medicine 08/17/21 12/04/23 Lou Baptiste MD [address] [place] [address] PCP - General Internal Medicine 12/05/23 Thang Kang MD [address] [place] [address] Inpatient Pharmacist Cardiovascular Disease 08/10/20 Cinthia Molina, RAVENC [address] [place] [address] Cardiology 09/05/20 03/12/24 John Burleson MD [address] [place] [address] Specialist Cardiology 12/06/21 Alicia Burnham NP [address] [place] [address] Cardiology 12/06/21 Artemio Tellez [address] [address] Urology 06/08/22 [facility] urology 10/26/21 documented as of this encounter
--- OUTSIDE RECORDS SUMMARY | 2025-05-24 17:25 | XMS_ITS | Encounter Summary ---
Author Organization [facility] Address [address] [place] [address] Care Team Providers Care Diesel Locomotive Firer/Fireman Name Role Phone Thang Kang MD Unavailable [phone] Cinthia Molina PA-C Unavailable Unavailab Andriy Farrell DO Primary Care Provider Unavaila John Velasquez MD Unavailable [phone] Alicia Burnham NP Unavailable [phone] Artemio Tellez Unavailable Unavailable Lou Baptiste MD Primary Care Provider Un available Encounter Details Date Type Department Care Team Description 08/06/2023 Orders Only Medical Records [address] [place] [address] John Robles MD Social History Tobacco Use Types Packs/Day Years Used Date Smoking Tobacco: Former Smokeless Tobacco: Never Comments:Stopped 1999 Alcohol Use Standard Drinks/Week Comments No 0 [...] week 08/16/2023 How often do you attend [facility] or yazdanism services? Never 08/16/2023 Do you belong to any clubs o r organizations such as gnosticist groups, unions, fraternal or athletic groups, or [...] place to sleep or slept in a assisted (including now)? No 08/16/2023 Sex Assigned at Date Recorded Not on file Job Start Date Occupation Industry Not on file Not on file Not on file documented as of this encounter Plan of Treatment Not on file documented as of this encounter Procedures Procedure Name Priority Date/Time Associated Diagnosis Comments OUTSIDE EYE EXAM Routine 08/05/2023 documented in this encounter Results * OUTSIDE EYE EXAM (08/05/2023) John Robles MD PROCEDURES documented in this encounter Visit Diagnoses Not on filedocumented in this encounter Care Teams Diesel Locomotive Firer/Fireman Relationship Specialty Start Date End Date Andriy Zimmerman, [address] [address] PCP - General Internal Medicine 08/17/21 12/04/23 Lou Baptiste MD [address] [address] PCP - General Internal Medicine 12/05/23 Tahng Kang MD [address] [address] Missionary Coordinator Cardiovascular Disease 08/10/20 Cinthia Molina PA-C [address] [address] Cardiology 09/05/20 03/12/24 John Burleson MD [address] [address] Specialist Cardiology 12/06/21 Alicia Burnham NP [address] [phone] Cardiology 12/06/21 Artemio Tellez [address] [place] [address] Urology 06/08/22 [facility] urology 10/26/21 documented as of this encounter
--- OUTSIDE RECORDS SUMMARY | 2025-05-24 17:25 | XMS_ITS | Encounter Summary ---
Author Organization [facility] Address [address] [place] [address] Care Team Providers Care Textile Screen Printer Name Role Phone Thang Kang MD Unavailable [phone] Cinthia Molina PA-C Unavailable Unavailab Andriy Farrell DO Primary Care Provider Unavaila John Velasquez MD Unavailable [phone] Alicia Burnham NP Unavailable [phone] Artemio Tellez Unavailable Unavailable Lou Baptiste MD Primary Care Provider Un available Reason for Visit * Reason Comments E-prescribe Rx Request Encounter Details Date Type Department Care Team Description 10/04/2023 Refill Adult Medicine [address] [address] Andriy Zimmerman DO E-prescribe Rx Request Social History Tobacco Use Types Packs/Day Years Used Date Smoking Tobacco: Former Cigarettes Q uit: 1999 Smokeless Tobacco: Never Alcohol Use Standard Drinks/Week [...] often do you attend chur ch or buddhism services? Never 08/16/2023 Do you belong to [...] place to sleep or slept in a longterm (including now)? No 08/16/2023 Sex Assigned at Date Recorded Not on file Job Start Date Occupation Industry Not on file Not on file Not on file documented as of this encounter Miscellaneous Notes * Telephone Encounter - Cait Noriega - 10/04/2023 2:43 PM EST duplicate documented in this encounter Plan of Treatment Not on file documented as of this encounter Visit Diagnoses Not on filedocumented in this encounter Care Teams Textile Screen Printer Relationship Specialty Start Date End Date Andriy Zimmerman DO [address] [place] [address] PCP - General Internal Medicine 08/17/21 12/04/23 Lou Baptiste MD [address] [facility] [address] [place] [address] PCP - General Internal Medicine 12/05/23 Thang Kang MD [address] [place] [address] Ethnic Origins Teacher Cardiovascular Disease 08/10/20 Cinthia Molina PA-C [address] [place] [address] Cardiology 09/05/20 03/12/24 John Burleson MD [address] [place] [address] Specialist Cardiology 12/06/21 Alicia Burnham NP [address] [address] Cardiology 12/06/21 Artemio Tellez [address] [address] Urology 06/08/22 [facility] urology 10/26/21 documented as of this encounter
--- OUTSIDE RECORDS SUMMARY | 2025-05-24 17:25 | XMS_ITS | Encounter Summary ---
Author Organization [facility] Address [address] [place] [address] Care Team Providers Care Skein Winder Name Role Phone Steffen Morrissey MD Primary Care Provider Unavailable Thang Kang MD Unavailable [phone] Cinthia Molina PA-C Unavailable Unavailab Andriy Farrell DO Primary Care Provider Unavaila John Velasquez MD Unavailable [phone] Alicia Burnham NP Unavailable [phone] Artemio Tellez Unavailable Unavailable Lou Baptiste MD Primary Care Provider Un available Reason for Visit * Reason Onset Date Comments Pre-visit Diabetes Lab Adult Medicine 05/16/202105/26 Encounter Details Date Type Department Care Team Description 05/16/2021 [place] Adult Medicine - [address] [address] Steffen Morrissey MD Pre-visit Diabetes Lab Adult Medicine (05/26) Social History Tobacco Use Types Packs/Day Years [...] How often do you attend chur or buddhist services? Never 08/16/2023 Do you belong to any clubs o r organizations such as episcopal groups, unions, fraternal or athletic groups, or [...] place to sleep or slept in a [facility] (including now)? No 08/16/2023 Sex Assigned at Date Recorded Not on file Job Start Date Occupation Industry Not on file Not on file Not on file COVID-19 Exposure Response Date Recorded In the last month, have you been in contact with someone who was confirmed or suspected to have Coronavirus / COVID-19? No / Unsure 04/21/2021 9:56 AM EDT documented as of this encounter Miscellaneous Notes * Telephone Encounter - Adali North - 05/16/2021 9:11 AM EDT Sent patient an email advising them to complete diabetic lab work at least three days prior to their upcoming appointment. documented in this encounter Plan of Treatment Not on file documented as of this encounter Results * (ABNORMAL) MICROALBUMIN/CREATININE, URINE (06/07/2021 9:31 AM EST) CREATININE, RANDOM URINE 226 mg/dL 06/07/2021 2:55 PM EST [facility] MICROALBUMIN, RANDOM 30.7(H) 0.0 - 29.0 mg/L 06/07/2021 3:01 PM EST [facility] MICROALB/CRE RATIO RANDOM 13.5 0.0 - 30.0 mg/G 06/07/2021 3:01 PM EST [facility] 06/07/2021 9:31 AM EST 06/07/2021 9:32 AM EST Narrative [facility] - 06/07/2021 3:01 PM EST Release to patient->Immediate Steffen Morrissey MD LAB [facility] * (ABNORMAL) HEMOGLOBIN A1C (06/07/2021 9:31 AM EST) [facility] GLYCATED HEMOGLOBIN A1C 8.2(H) 4.8 - 5.6 % 06/12/2021 9:29 AM EST [facility] Comment: Prediabetes: 5.7 - 6.4 Diabetes: >6.4 Glycemic control for adults with diabetes: <7.0 PLEASE NOTE A1c testing is temporarily being performed at [facility] due to instrumentation issues at [facility] Note differences in reference ranges. Testing performed at: [facility] [address] PHONE: ESTIMATED AVERAGE GLUCOSE 189 mg/dL 06/12/2021 9:29 AM EST [facility] 06/07/2021 9:31 AM EST 06/07/2021 9:32 AM EST Narrative [facility] - 06/12/2021 9:29 AM EST Release to patient->Immediate Steffen Morrissey MD LAB [facility] documented in this encounter Visit Diagnoses Diagnosis Type II diabetes mellitus, well controlled (HCC)- Primary Type II or unspecified type diabetes mellitus without mention of complication, not stated as uncontrolled Type II diabetes mellitus, well controlled (HCC) Type II or unspecified type diabetes mellitus without mention of complication, not stated as uncontrolled documented in this encounter Care Teams Skein Winder Relationship Specialty Start Date End Date Steffen Morrissey MD PCP - General Internal Medicine 11/06/1607/29 Andriy Zimmerman DO [address] [place] [address] PCP - General Internal Medicine 08/17/21 12/04/23 Lou Baptiste MD [address] [place] [address] PCP - General Internal Medicine 12/05/23 Thang Kang MD [address] [place], [place] [id number] Door Hanger Cardiovascular Disease 08/10/20 Cinthia Molina PA-C [address] [place] [address] Cardiology 09/05/20 03/12/24 John Burleson MD [address] [place] [address] Specialist Cardiology 12/06/21 Alicia Burnham NP [address] [place] [address] Cardiology 12/06/21 Artemio Tellez [address] [place] [address] Urology 06/08/22 [facility] urology 10/26/21 documented as of this encounter
--- OUTSIDE RECORDS SUMMARY | 2025-05-24 17:26 | XMS_ITS | Encounter Summary ---
Author Organization [facility] Address [address] [place] [address] Care Team Providers Care Welding Process Engineer Name Role Phone Steffen Morrissey MD Primary Care Provider Unavailable Thang Kang MD Unavailable [phone] Cinthia Molina PA-C Unavailable Unavailab Andriy Farrell DO Primary Care Provider Unavaila John Velasquez MD Unavailable [phone] Alicia Burnham NP Unavailable [phone] Artemio Tellez Unavailable Unavailable Lou Baptiste MD Primary Care Provider Un available Reason for Visit * Reason Comments E-prescribe Rx Request Encounter Details Date Type Department Care Team Description 04/22/2020 Ref[place] Adult Medicine [address] [address] Steffen Morrissey MD E-prescribe Rx Request Social [...] often do you attend chur ch or gnosticism services? Never 08/16/2023 Do you belong to any clubs o r organizations such as temple groups, unions, fraternal or athletic groups, or [...] place to sleep or slept in a nursing home (including now)? No 08/16/2023 Sex Assigned at Date Recorded Not on file Job Start Date Occupation Industry Not on file Not on file Not on file documented as of this encounter Miscellaneous Notes * Telephone Encounter - Nona Manjarrez - 04/22/2020 9:07 AM EDT Patient would like script to be: E-PRESCRIBED/FAXED TO PHARMACY WHEN WAS THE PATIENT'S LAST APPOINTMENT IN ADULT MEDICINE? 11/25/19 WHEN WAS THE LAST TIME THE PATIENT SAW THEIR PCP? Same as above Does patient have an upcoming appointment? Yes 05/13/2020 (THE MEDICATION REQUESTED IS ON THE MED LIST ABOVE) All of the medications requested were on the CURRENT MEDS list Did you check the Pharmacy information above?: YES Patient wants: 90 -day supply Is this a mail order prescription request ? NO If the refill is from a FAXED refill request what is the RX # listed on the fax? N/A Patients current insurance carrier is: [place] / [place] / Product Type: MEDICARE [id number] documented in this encounter Plan of Treatment Not on file documented as of this encounter Visit Diagnoses Not on filedocumented in this encounter Care Teams Welding Process Engineer Relationship Specialty Start Date End Date Steffen Morrissey MD PCP - General Internal Medicine 11/06/1607/29 Andriy Zimmerman DO [address] [place] [address] PCP - General Internal Medicine 08/17/21 12/04/23 Lou Baptiste MD [address] [place] [address] PCP - General Internal Medicine 12/05/23 Thang Kang MD [address] [place] [address] Res Counselor Cardiovascular Disease 08/10/20 Cinthia Molina PA-C [address] [place] [address] Cardiology 09/05/20 03/12/24 John Burleson MD [address] [place] [address] Specialist Cardiology 12/06/21 Alicia Burnham NP [address] [place] [address] Cardiology 12/06/21 Artemio Tellez [address] [place] [address] Urology 06/08/22 [facility] urology 10/26/21 documented as of this encounter
--- OUTSIDE RECORDS SUMMARY | 2025-05-24 17:26 | XMS_ITS | Encounter Summary ---
Author Organization [facility] Address [address] [place] [address] Care Team Providers Care Stamping Die Maker Bench Name Role Phone Steffen Morrissey MD Primary Care Provider Unavailable Thang Kang MD Unavailable [phone] Cinthia Molina PA-C Unavailable Unavailab Andriy Farrell DO Primary Care Provider Unavaila John Velasquez MD Unavailable [phone] Alicia Burhnam NP Unavailable [phone] Artemio Tellez Unavailable Unavailable Lou Baptiste MD Primary Care Provider Un available Reason for Visit * Reason Onset Date Comments Pre-visit Diabetes Lab Adult Medicine 08/05/201908/19 Encounter Details Date Type Department Care Team Description 08/05/2019 [place] Adult [facility] - [address] [address] Steffen Morrissey MD Pre-visit Diabetes Lab Adult Medicine (08/19) Social History Tobacco Use Types Packs/Day Years [...] How often do you attend chur or religion services? Never 08/16/2023 Do you belong to any clubs o r organizations such as adventism groups, unions, fraternal or athletic groups, or [...] place to sleep or slept in a detention (including now)? No 08/16/2023 Sex Assigned at Date Recorded Not on file Job Start Date Occupation Industry Not on file Not on file Not on file documented as of this encounter Miscellaneous Notes * Telephone Encounter - Adali North - 08/05/2019 9:09 AM EST Sent patient an email advising them to complete diabetic lab work at least three days prior to their upcoming appointment. documented in this encounter Plan of Treatment Scheduled Orders Name Type Priority Associated Diagnoses Orde r Schedule MICROALBUMIN/CREATINI NE, URINE Lab Routine Type II diabetes mellitus, well controlled (HCC) Expected: 08/05/2019, Expires: 08/04/2020 documented as of this encounter Results * LIPID PROFILE (08/19/2019 2:40 PM EST) Cholesterol 142 0 - 200 mg/dL 08/19/2019 6:19 PM EST [facility] TRIGLYCERIDES 111 0 - 150 mg/dL 08/19/2019 6:19 PM EST [facility] HDL CHOLESTEROL 52 >40 mg/dL 0 6:25 PM EST [facility] LDL CALCULATED 68 0 - 100 mg/dL 08/19/2019 6:25 PM EST [facility] TC-HDLC RATIO 2.7 0 - 4.4 mg/dL 08/19/2019 6:25 PM EST [facility] 08/19/2019 2:40 PM EST 08/19/2019 2:41 PM EST Steffen Morrissey MD LAB [facility] documented in this encounter Visit Diagnoses Diagnosis Type II diabetes mellitus, well controlled (HCC)- Primary Type II or unspecified type diabetes mellitus without mention of complication, not stated as uncontrolled documented in this encounter Care Teams Stamping Die Maker Bench Relationship Specialty Start Date End Date Steffen Morrissey MD PCP - General Internal Medicine 11/06/1607/29 Andriy Zimmerman DO [address] [place] [address] PCP - General Internal Medicine 08/17/21 12/04/23 Lou Baptiste MD [address] [place] [address] PCP - General Internal Medicine 12/05/23 Thang Kang MD [address] [place] [address] Clod Puller Cardiovascular Disease 08/10/20 Cinthia Molina PA-C [address] [place] [address] Cardiology 09/05/20 03/12/24 John Burleson MD [address] [place] [address] Specialist Cardiology 12/06/21 Alicia Burnham NP [address] [place] [address] Cardiology 12/06/21 Artemio Tellez [address] [place] [address] Urology 06/08/22 [facility] urology 10/26/21 documented as of this encounter
--- OUTSIDE RECORDS SUMMARY | 2025-05-24 17:26 | XMS_ITS | Encounter Summary ---
Author Organization [facility] Address [address] [place] [address] Care Team Providers Care Medical Assistant Dermatology Name Role Phone Thang Kang MD Unavailable [phone] Cinthia Molina PA-C Unavailable Unavailab Andriy Farrell DO Primary Care Provider Unavaila John Velasquez MD Unavailable [phone] Alicia Burnham NP Unavailable [phone] Artemio Tellez Unavailable Unavailable Lou Baptiste MD Primary Care Provider Un available Reason for Visit * Reason Comments E-prescribe Rx Request Encounter Details Date Type Department Care Team Description 06/09/2022 Refill Adult Medicine [address] [address] Andriy Zimmerman DO E-prescribe Rx Request Social [...] often do you attend chur ch or mu-ism services? Never 08/16/2023 Do you belong to [...] place to sleep or slept in a care home (including now)? No 08/16/2023 Sex Assigned at Date Recorded Not on file Job Start Date Occupation Industry Not on file Not on file Not on file COVID-19 Exposure Response Date Recorded In the last 10 days, have yo u been in contact with someone who was confirmed or suspected to have Coronavirus/COVID-19? No / Unsure 06/08/2022 2:06 PM EST documented as of this encounter Miscellaneous Notes * Telephone Encounter - Siri Lacyn - 06/10/2022 8:03 PM EST Patient would like script to be: E-PRESCRIBED/FAXED TO PHARMACY WHEN WAS THE PATIENT'S LAST APPOINTMENT IN ADULT MEDICINE? 06-08-22 WHEN WAS THE LAST TIME THE PATIENT SAW THEIR PCP? Same as above Does patient have an upcoming appointment? Yes 09-13-22 (THE MEDICATION REQUESTED IS ON THE MED [...] / [place] / Product Type: MEDICARE [id number] documented in this encounter Plan of Treatment Not on file documented as of this encounter Visit Diagnoses Diagnosis Mixed hyperlipidemia documented in this encounter Care Teams Medical Assistant Dermatology Relationship Specialty Start Date End Date Andriy Zimmerman DO [address] [place] [address] PCP - General Internal Medicine 08/17/21 12/04/23 Lou Baptiste MD [address] [facility] [address] [place] [address] PCP - General Internal Medicine 12/05/23 Thang Kang MD [address] [facility] [address] [place] [address] Copy Manager Cardiovascular Disease 08/10/20 Cinthia Molina PA-C [address] [place] [address] Cardiology 09/05/20 03/12/24 John Burleson MD [address] [facility] [address] [place] [address] Specialist Cardiology 12/06/21 Alicia Burnham NP [address] [address] Cardiology 12/06/21 Artemio Tellez [address] [facility] [address] [place] [address] Urology 06/08/22 [facility] urology 10/26/21 documented as of this encounter
--- OUTSIDE RECORDS SUMMARY | 2025-05-24 17:26 | XMS_ITS | Encounter Summary ---
Author Organization [facility] Address [address] [place] [address] Care Team Providers Care Print Shop Chief Clerk Name Role Phone Thang Kang MD Unavailable [phone] Cinthia Molina PA-C Unavailable Unavailab Andriy Farrell DO Primary Care Provider Unavaila John Velasquez MD Unavailable [phone] Alicia Burnham NP Unavailable [phone] Artemio Tellez Unavailable Unavailable Lou Baptiste MD Primary Care Provider Un available Encounter Details Date Type Department Care Team Description 10/01/2021 [facility] Medical Records [address] [place] [address] Social History Tobacco Use Types Packs/Day Years Used Date Smoking Tobacco: Former Cigarettes Q uit: 2000 Smokeless Tobacco: Never Alcohol Use Standard Drinks/Week [...] week 08/16/2023 How often do you attend [facility] or jain services? Never 08/16/2023 Do you belong to any clubs o r organizations such as anabaptist groups, unions, fraternal or athletic groups, or [...] place to sleep or slept in a senior care (including now)? No 08/16/2023 Sex Assigned at Date Recorded Not on file Job Start Date Occupation Industry Not on file Not on file Not on file documented as of this encounter Plan of Treatment Not on file documented as of this encounter Procedures Procedure Name Priority Date/Time Associated Diagnosis Comments OUTSIDE EKG Routine 10/03/2021 OUTSIDE LAB Routine 10/02/[address] Routine 10/01/2021 OUTSIDE PLAIN FILM Routine 10/01/2021 documented in this encounter Results * OUTSIDE EKG (10/03/2021) Provider Abstract CARDIOLOGY * OUTSIDE LAB (10/02/2021) Provider Abstract LAB * OUTSIDE CT (10/01/2021) Provider Abstract RADIOLOGY * OUTSIDE PLAIN FILM (10/01/2021) Provider Abstract RADIOLOGY documented in this encounter Visit Diagnoses Not on filedocumented in this encounter Care Teams Print Shop Chief Clerk Relationship Specialty Start Date End Date Andriy Zimmerman DO [address] [place] [address] PCP - General Internal Medicine 08/17/21 12/04/23 Lou aBptiste MD [address] [place] [address] PCP - General Internal Medicine 12/05/23 Thang Kang MD [address] [place] [address] Automatic Mounter Cardiovascular Disease 08/10/20 Cinthia Molina PA-C [address] [place] [address] Cardiology 09/05/20 03/12/24 John Burleson MD [address] [place] [address] Specialist Cardiology 12/06/21 Alicia Burnham NP [address] [address] Cardiology 12/06/21 Artemio Tellez [address] [place] [address] Urology 06/08/22 [facility] urology 10/26/21 documented as of this encounter
--- OUTSIDE RECORDS SUMMARY | 2025-05-24 17:26 | XMS_ITS | Encounter Summary ---
Author Organization [facility] Address [address] [place] [address] Care Team Providers Care Oxidation Operator Name Role Phone Thang Kang MD Unavailable [phone] Cinthia Molina PA-C Unavailable Unavailab Andriy Farrell DO Primary Care Provider Unavaila John Velasquez MD Unavailable [phone] Alicia Burnham NP Unavailable [phone] Artemio Tellez Unavailable Unavailable Lou Baptiste MD Primary Care Provider Un available Encounter Details Date Type Department Care Team Description 05/01/2022 Pt. Non Urgent Medic al [place] Adult Medicine - [address] [address] Andriy Zimmemran DO Social History Tobacco Use Types Packs/Day Years [...] often do you attend chur ch or adventism services? Never 08/16/2023 Do you belong to any clubs o r organizations such as protestant groups, unions, fraternal or athletic groups, or [...] place to sleep or slept in a [place] [facility] facility (including now)? No 08/16/2023 Sex Assigned at Date Recorded Not on file Job Start Date Occupation Industry Not on file Not on file Not on file documented as of this encounter Miscellaneous Notes * Telephone Encounter - Loren Ahuja M.A. - 05/01/2022 11:11 AM EDTFrom: Precious Glover To: Agueda Zimmerman Sent: 05/01/2022 10:19 AM EDT Subject: Lab work Hi, Do I have to have lab work for my May.07 office visit? Precious Glover documented in this encounter Plan of Treatment Not on file documented as of this encounter Visit Diagnoses Not on filedocumented in this encounter Care Teams Oxidation Operator Relationship Specialty Start Date End Date Andriy Zimmerman DO [address] [place] [address] PCP - General Internal Medicine 08/17/21 12/04/23 Lou Baptiste MD [address] [place] [address] PCP - General Internal Medicine 12/05/23 Thang Kang MD [address] [place] [address] Test Hole Driller Cardiovascular Disease 08/10/20 Cinthia Molina PA-C [address] [place] [address] Cardiology 09/05/20 03/12/24 John Burleson MD [address] [facility] [address] [place] [address] Specialist Cardiology 12/06/21 Alicia Burnham NP [address] [address] Cardiology 12/06/21 Artemio Tellez [address] [address] Urology 06/08/22 [facility] urology 10/26/21 documented as of this encounter
--- OUTSIDE RECORDS SUMMARY | 2025-05-24 17:26 | XMS_ITS | Encounter Summary ---
Author Organization [facility] Address [address] [place] [address] Care Team Providers Care Elevator Constructor Hydraulic Name Role Phone Steffen Morrissey MD Primary Care Provider Unavailable Thang Kang MD Unavailable [phone] Cinthia Molina PA-C Unavailable Unavailab Andriy Farrell DO Primary Care Provider Unavaila John Velasquez MD Unavailable [phone] Alicia Burnham NP Unavailable [phone] Artemio Tellez Unavailable Unavailable Lou Baptiste MD Primary Care Provider Un available Encounter Details Date Type Department Care Team Description 12/18/2018 Clinical Outcomes Manager Report Medical Records [address] [place] [address] Sue Cowan PA-C Social History Tobacco Use Types Packs/Day Years [...] often do you attend chur ch or jainism services? Never 08/16/2023 Do you belong to any clubs o r organizations such as sikhism groups, unions, fraternal or athletic groups, or [...] on filedocumented in this encounter Care Teams Elevator Constructor Hydraulic Relationship Specialty Start Date End Date Steffen Morrissey MD PCP - General Internal Medicine 11/06/1607/29 Andriy Zimmerman, [address] [address] PCP - General Internal Medicine 08/17/21 12/04/23 Lou Baptiste MD [address] [address] PCP - General Internal Medicine 12/05/23 Thang Kang MD [address] [facility] [address] [place] [address] Pin Feather Machine Operator Cardiovascular Disease 08/10/20 Cinthia Molina PA-C [address] [facility] [address] [place] [address] Cardiology 09/05/20 03/12/24 John Burleson MD [address] [facility] [address] [place] [address] Specialist Cardiology 12/06/21 Alicia Burnham NP [address] [facility] [address] [place] [address] Cardiology 12/06/21 Artemio Tellez [address] [address] Urology 06/08/22 [facility] urology 10/26/21 documented as of this encounter
--- OUTSIDE RECORDS SUMMARY | 2025-05-24 17:26 | XMS_ITS | Encounter Summary ---
Author Organization [facility] Address [address] [place] [address] Care Team Providers Care Outboard Motor Inspector Name Role Phone Thang Kang MD Unavailable [phone] Cinthia Molina PA-C Unavailable Unavailab Andriy Farrell DO Primary Care Provider Unavaila John Velasquez MD Unavailable Alicia Burnham NP Unavailable [phone] Artemio Tellez Unavailable Unavailable Lou Baptiste MD Primary Care Provider Un available Encounter Details Date Type Department Care Team Description 11/20/2022 Refill Cardio PVC POC [address] [facility] [address] [place] [address] Andriy Zimmerman DO Social History Tobacco Use Types Packs/Day [...] 08/16/2023 How often do you attend [facility] or zoroastrian services? Never 08/16/2023 Do you belong to any clubs o r organizations such as alevism groups, unions, fraternal or athletic groups, or [...] suspected to have Coronavirus/COVID-19? No / Unsure 11/23/2022 1:52 PM EDT documented as of this encounter Plan of Treatment Not on file documented as of this encounter Visit Diagnoses Diagnosis Mixed hyperlipidemia documented in this encounter Care Teams Outboard Motor Inspector Relationship Specialty Start Date End Date Andriy Zimmerman, [address] [address] PCP - General Internal Medicine 08/17/21 12/04/23 Lou Baptiste MD [address] [address] PCP - General Internal Medicine 12/05/23 Thang Kang MD [address] [address] Administrative Tech Cardiovascular Disease 08/10/20 Cinthia Molina PA-C [address] [address] Cardiology 09/05/20 03/12/24 John Burleson MD [address] [address] Specialist Cardiology 12/06/21 Alicia Burnham NP [address] [address] Cardiology 12/06/21 Artemio Tellez [address] [address] Urology 06/08/22 [facility] urology 10/26/21 documented as of this encounter
--- OUTSIDE RECORDS SUMMARY | 2025-05-24 17:26 | XMS_ITS | Encounter Summary ---
Author Organization [facility] Address [address] [place] [address] Care Team Providers Care Solid Waste Engineer Name Role Phone Thang Kang MD Unavailable [phone] John Burleson MD Unavailable [phone] Alicia Burnham NP Unavailable [phone] Artemio Tellez Unavailable Unavailable Lou Baptiste MD Primary Care Provider Un available Reason for Visit * Reason Comments E-prescribe Rx Request Encounter Details Date Type Department Care Team Description 04/29/2024 Refill Adult Medicine - [place] [address] [place] [address] Cornelius Herrera PA-C [address] [place] [address] E-prescribe Rx Request Social History Tobacco Use [...] often do you attend chur ch or yarsanism services? Never 08/16/2023 Do you belong to any clubs o r organizations such as sabianism groups, unions, fraternal or athletic groups, or [...] place to sleep or slept in a intermediate (including now)? No 08/16/2023 Sex Assigned at Date Recorded Not on file Job Start Date Occupation Industry Not on file Not on file Not on file documented as of this encounter Miscellaneous Notes * Telephone Encounter - Maxi Vergara - 04/29/2024 10:04 AM EDT Duplicate documented in this encounter Plan of Treatment Not on file documented as of this encounter Visit Diagnoses Diagnosis Seborrheic dermatitis Seborrheic dermatitis, unspecified documented in this encounter Care Teams Solid Waste Engineer Relationship Specialty Start Date End Date Lou Baptiste MD [address] [address] PCP - General Internal Medicine 12/05/23 Thang Kang MD [address] [address] Transmission Line Engineer Cardiovascular Disease 08/10/20 John Burleson MD [address] [address] Specialist Cardiology 12/06/21 Alicia Burnham NP [address] [address] Cardiology 12/06/21 Artemio Tellez [address] [address] Urology 06/08/22 [facility] urology 10/26/21 documented as of this encounter
--- OUTSIDE RECORDS SUMMARY | 2025-05-24 17:26 | XMS_ITS | Encounter Summary ---
Author Organization [facility] Address [address] [place] [address] Care Team Providers Care Welder Name Role Phone Thang Kang MD Unavailable [phone] Cinthia Molina PA-C Unavailable Unavailab Andriy Farrell DO Primary Care Provider Unavaila John Velasquez MD Unavailable [phone] Alicia Burnham NP Unavailable Artemio Tellez Unavailable Unavailable Lou Baptiste MD Primary Care Provider Un available Reason for Visit * Reason Comments E-prescribe Rx Request Encounter Details Date Type Department Care Team Description 06/09/2022 Refill Adult Medicine - [place] [address] [place] [address] Jaja Yee MD [address] [place] [address] E-prescribe Rx Request Social History Tobacco Use [...] encounter Miscellaneous Notes * Telephone Encounter - Lisa Camara - 06/11/2022 11:16 AM EST REFILL LAST OFFICE VIST: 06/08/22 LAST PCP VISIT: NEXT OFFICE VISIT: 09/13/22 documented in this encounter Plan of Treatment Not on file documented as of this encounter Visit Diagnoses Not on filedocumented in this encounter Care Teams Welder Relationship Specialty Start Date End Date Andriy Zimmerman DO [address] [place] [address] PCP - General Internal Medicine 08/17/21 12/04/23 Lou Baptiste MD [address] [place] [address] PCP - General Internal Medicine 12/05/23 Thang Kang MD [address] [place] [address] Marionette Performer Cardiovascular Disease 08/10/20 Cinthia Molina PA-C [address] [place] [address] Cardiology 09/05/20 03/12/24 John Burleson MD 300 [facility] [address] [place] [address] Specialist Cardiology 12/06/21 Alicia Burnham NP [address] [phone] Cardiology 12/06/21 Artemio Tellez [address] [address] Urology 06/08/22 [facility] urology 10/26/21 documented as of this encounter
--- OUTSIDE RECORDS SUMMARY | 2025-05-24 17:26 | XMS_ITS | Encounter Summary ---
Author Organization [facility] Address [address] [place] [address] Care Team Providers Care Skein Bleacher Name Role Phone Steffen Morrissey MD Primary Care Provider Unavailable Thang Kang MD Unavailable [phone] Cinthia Molina PA-C Unavailable Unavailab Andriy Farrell DO Primary Care Provider Unavaila John Velasquez MD Unavailable [phone] Alicia Burnham NP Unavailable [phone] Artemio Tellez Unavailable Unavailable Lou Baptiste MD Primary Care Provider Un available Encounter Details Date Type Department Care Team Description 10/12/2020 Old Medical Records Medical Records [address] [place] [address] Abstract, Provider Social History Tobacco Use Types Packs/Day Years [...] often do you attend chur ch or pentecostal services? Never 08/16/2023 Do you belong to any clubs o r organizations such as taoism groups, unions, fraternal or athletic groups, or [...] on filedocumented in this encounter Care Teams Skein Bleacher Relationship Specialty Start Date End Date Steffen Morrissey MD PCP - General Internal Medicine 11/06/1607/29 Andriy Zimmerman DO [address] [address] PCP - General Internal Medicine 08/17/21 12/04/23 Lou Baptiste MD [address] [address] PCP - General Internal Medicine 12/05/23 Thang Kang MD [address] [facility] [address] [place] [address] Mammal Keeper Cardiovascular Disease 08/10/20 Cinthia Molina PA-C [address] [place] [address] Cardiology 09/05/20 03/12/24 John Burleson MD [address] [facility] [address] [place] [address] Specialist Cardiology 12/06/21 Alicia Burnham NP [address] [facility] [address] [place] [phone] Cardiology 12/06/21 Artemio Tellez [address] [address] Urology 06/08/22 [facility] urology 10/26/21 documented as of this encounter
--- OUTSIDE RECORDS SUMMARY | 2025-05-24 17:26 | XMS_ITS | Encounter Summary ---
Author Organization [facility] Address [address] [place] [address] Care Team Providers Care Tool Distributor Name Role Phone Thang Kang MD Unavailable [phone] Cinthia Molina PA-C Unavailable Unavailab Andriy Farrell DO Primary Care Provider Unavaila John Velasquez MD Unavailable [phone] Alicia Burnham NP Unavailable [phone] Artemio Tellez Unavailable Unavailable Lou Baptiste MD Primary Care Provider Un available Reason for Visit * Reason Onset Date Comments medication problems 06/19/2022 Encounter Details Date Type Department Care Team Description 06/19/2022 Telephone Adult [facility] - [address] [address] Andriy Zimmerman DO medication problems Social History Tobacco Use Types Packs/Day Years [...] often do you attend chur ch or episcopalian services? Never 08/16/2023 Do you belong to any clubs o r organizations such as rastafari groups, unions, fraternal or athletic groups, or [...] place to sleep or slept in a residential (including now)? No 08/16/2023 Sex Assigned at [...] encounter Miscellaneous Notes * Telephone Encounter - Sue Little M.A. - 06/25/2022 10:05 AM EST This needs to be run under medicare part b at the pharmacy Not part D * Telephone Encounter - Sue Little M.A. 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 - 06/19/2022 11:40 AM EST Needs Prior Authorization [facility] states that they just do a prior authorization * Telephone Encounter - Lisa Camara - 06/19/2022 11:34 AM EST What is the name of the medication patient is having a problem with?: Isaac Adair Lancets 30G Misc What is the problem?: patient is not on insulin so medicare will only cover testing once daily, pharmacy requesting a new script Is the patient calling about the problem? NO If the patient is not the caller who is? pharmacy Is this a NEW medication?: NO How long has the patient been taking this medication? Who prescribed this medication for the patient? Donita Alva Who is patients PCP?: Andriy Zimmerman DO Payor: MEDICARE-[employer] / Plan: MEDICARE-[employer] / Product Type: MEDICARE [id number] documented in this encounter Plan of Treatment Not on file documented as of this encounter Visit Diagnoses Not on filedocumented in this encounter Care Teams Tool Distributor Relationship Specialty Start Date End Date Andriy Zimmerman DO [address] [place] [address] PCP - General Internal Medicine 08/17/21 12/04/23 Lou Baptiste MD [address] [address] PCP - General Internal Medicine 12/05/23 Thang Kang MD [address] [facility] [address] [place] [address] Cardiovascular Disease 08/10/20 Cinthia Molina PA-C [address] [place] [address] Cardiology 09/05/20 03/12/24 John Burleson MD [address] [facility] [address] [place] [address] Specialist Cardiology 12/06/21 Alicia Burnham NP [address] [facility] [address] [place] [address] Cardiology 12/06/21 Artemio Tellez [address] [place] [address] Urology 06/08/22 [facility] urology 10/26/21 documented as of this encounter
--- OUTSIDE RECORDS SUMMARY | 2025-05-24 17:26 | XMS_ITS | Encounter Summary ---
Author Organization [facility] Address [address] [place] [address] Care Team Providers Care Staffing Branch Manager Name Role Phone Thang Kang MD Unavailable [phone] Cinthia Molina PA-C Unavailable Unavailab Andriy Farrell DO Primary Care Provider Unavaila John Velasquez MD Unavailable Alicia Burnham NP Unavailable [phone] Artemio Tellez Unavailable Unavailable Lou Baptiste MD Primary Care Provider Un available Encounter Details Date Type Department Care Team Description 07/25/2022 Pt. Non Urgent Medic al Question Adult Medicine - [address] [address] Donita Alva PA-C Social History Tobacco Use Types Packs/Day [...] often do you attend chur ch or mormonism services? Never 08/16/2023 Do you belong to any clubs o r organizations such as oriental orthodox groups, unions, fraternal or athletic groups, or [...] encounter Miscellaneous Notes * Telephone Encounter - Loern Ahuja M.A. - 07/25/2022 12:40 PM ESTFrom: Precious Glover To: Agueda Alva Sent: 07/25/2022 12:31 PM EST Subject: Lab work Mario Donita, Can I go to [address] to have my labs done? I would like to go Saturday in the morning due to fasting.If you could send the request over to them,please let me know. Thank You, Precious documented in this encounter Plan of Treatment Not on file documented as of this encounter Visit Diagnoses Not on filedocumented in this encounter Care Teams Staffing Branch Manager Relationship Specialty Start Date End Date Andriy Zimmerman DO [address] [place] [address] PCP - General Internal Medicine 08/17/21 12/04/23 Lou Baptiste MD [address] [place] [address] PCP - General Internal Medicine 12/05/23 Thang Kang MD [address] [place] [address] Hydrogen Operator Cardiovascular Disease 08/10/20 Cinthia Molina PA-C [address] [place] [address] Cardiology 09/05/20 03/12/24 John Burleson MD [address] [place] [address] Specialist Cardiology 12/06/21 Alicia Burnham NP [address] [address] Cardiology 12/06/21 Artemio Tellez [address] [facility] [address] [place] [address] Urology 06/08/22 [facility] urology 10/26/21 documented as of this encounter
--- OUTSIDE RECORDS SUMMARY | 2025-05-24 17:26 | XMS_ITS | Encounter Summary ---
Author Organization [facility] Address [address] [place] [address] Care Team Providers Care Financial Institution Vice President Name Role Phone Thang Kang MD Unavailable [phone] Cinthia Molina PA-C Unavailable Unavailab Andriy Farrell DO Primary Care Provider Unavaila John Velasquez MD Unavailable [phone] Alicia Burnham NP Unavailable [phone] Artemio Tellez Unavailable Unavailable Lou Baptiste MD Primary Care Provider Un available Encounter Details Date Type Department Care Team Description 04/11/2022 Orders Only Medicine/Pediatrics - [address] [address] Andriy Zimmerman DO Preoperative examination (Primary Dx) Social History Tobacco Use Types Packs/Day Years [...] often do you attend chur ch or zoroastrianism services? Never 08/16/2023 Do you belong to any clubs o r organizations such as roman catholic groups, unions, fraternal or athletic groups, or [...] as of this encounter Plan of Treatment Scheduled Orders Name Type Priority Associated Diagnoses Orde r Schedule ELECTROCARDIOGRAM, COMPLETE (ECG) Cardiology Routine Preoperative examination 1 Occurrences starting 04/11/2022 until 04/11/2023 documented as of this encounter Visit Diagnoses Diagnosis Preoperative examination- Primary Preoperative examination, unspecified documented in this encounter Care Teams Financial Institution Vice President Relationship Specialty Start Date End Date Andriy Zimmerman, [address] [facility] [address] [place] [address] PCP - General Internal Medicine 08/17/21 12/04/23 Lou Baptiste MD [address] [address] PCP - General Internal Medicine 12/05/23 Thang Kang MD [address] [facility] [address] [place] [address] Florist Designer Cardiovascular Disease 08/10/20 Cinthia Molina PA-C [address] [facility] [address] [place] [address] Cardiology 09/05/20 03/12/24 John Burleson MD [address] [facility] [address] [place] [address] Specialist Cardiology 12/06/21 Alicia Burnham NP [address] [facility] [address] [place] [address] Cardiology 12/06/21 Artemio Tellez [address] [address] Urology 06/08/22 [facility] urology 10/26/21 documented as of this encounter
--- OUTSIDE RECORDS SUMMARY | 2025-05-24 17:26 | XMS_ITS | Clinical Summary ---
Author Organization [facility] Address [address] [place] [address] Care Team Providers Care Master At Arms Name Role Phone Thang Kang MD Unavailable [phone] John Burleson MD Unavailable [phone] Alicia Burnham NP Unavailable [phone] Artemio Tellez Unavailable Unavailable Lou Baptiste MD Primary Care Provider Un available Allergies Active Allergy Reactions Severity Noted Date Comments Clopidogrel 11/19/2016 Swelling,, rash Medications Medication Sig Dispensed Refills Start Date End Date Status Vitamin D, Cholecalciferol, 1000 UNITS Tab Take by mouth. daily 0 Active EPINEPHrine (EPIPEN 2-ALFREDO) 0.3 MG/0.3ML Solution Auto-injector Inject 1 Syringe as directed as needed for Other (Allergic reaction). 1 Each 1 06/23/2018 Active Blood Glucose Calibration (OT ULTRA/FASTTK CNTRL SOLN) SolutionIndications: Type II diabetes mellitus, well controlled (HCC) To use daily 1 Each 6 10/06/2018 Active estradiol (ESTRACE) 0.1 MG/GM vaginal cream 1 GM PER VAGINA EVERY DAY AT BEDTIME X 2 WEEKS THEN 1 GM PER VAGINA THREE TIMES PER WEEK. 42.5 g 3 04/09/2022 Active OneTouch Delica Lancets 30G Misc 1 Stick by Does not apply route daily. 100 Each 1 06/25/2022 Active fluticasone 50 MCG/ACT nasal sprayIndications:Sea rekha allergies INHALE 2 SPRAYS BY NASAL ROUTE DAILY FOR 30 DAYS 16 mL 2 10/18/2022 Active cetirizine (ZYRTEC) 10 MG tabletIndications:Se asonal allergies TAKE 1 TABLET BY MOUTH EVERY DAY 90 Tablet 0 11/22/2022 Active hydrocortisone 2.5 % cream Apply to affected areas daily as needed for itching. 30 g 2 11/23/2022 Active Sotalol HCl, AF, 80 MG Tab Take 1 Tablet by mouth 2 Times Daily. 0 07/15/2023 Active amlodipine (NORVASC) 5 MG tabletIndications:Ot her secondary hypertension Take 1 Tablet by mouth daily. 90 Tablet 0 01/20/2024 Active atorvastatin (LIPITOR) 40 MG tablet Take 1 Tablet by mouth daily. 90 Tablet 3 01/20/2024 Active ezetimibe (ZETIA) 10 MG tabletIndications:Mi xed hyperlipidemia Take 1 Tablet by mouth daily. 90 Tablet 0 02/05/2024 Active ketoconazole (NIZORAL) 2 % shampooIndications:S eborrheic dermatitis USE 1 APPLICATION FOR 3 TIMES WEEKLY NEEDED FOR ITCHING 120 mL 0 04/17/2024 Active losartan (COZAAR) 50 MG tablet TAKE 1 TABLET BY MOUTH EVERY DAY 90 Tablet 0 04/17/2024 Active sotalol (BETAPACE) 80 MG tabletIndications:Ot her secondary hypertension TAKE 1 TABLET BY MOUTH TWICE A DAY 180 Tablet 0 04/17/2024 Active OneTouch Verio stripIndications:Typ e 2 diabetes mellitus with cataract (HCC) USE TO CHECK BLOOD SUGAR TWICE DAILY 200 Strip 2 04/21/2024 Active Xarelto 20 MG Tab TAKE 1 TABLET BY MOUTH EVERY DAY 90 Tablet 3 04/29/2024 Active Docusate Sodium 100 MG TabIndications:Const ipation, unspecified constipation type Take 1 Tablet by mouth 2 times daily as needed (constipation). 90 Tablet 2 04/29/2024 Active famotidine (PEPCID) 20 MG tabletIndications:Ga stroesophageal reflux disease, unspecified whether esophagitis present Take 1 Tablet by mouth 2 Times Daily. 180 Tablet 2 04/29/2024 Active glipiZIDE (GLUCOTROL) 10 MG 24 hr tablet Take 1 Tablet by mouth 2 Times Daily. 180 Tablet 2 04/29/2024 Active Active Problems Problem Noted Date Personal history of bladder cancer 10/26 Dyspnea on exertion 09/05/2020 Last Assessment & Plan: C/o chronic MUNIZ. Recommend she increase her physical exercise and lose weight. Will update her echocardiogram. 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 Last Assessment & Plan: Highly recommended she get a CPAP for her ONEIDA, but she states she doesn't feel anything and sleeps well. I reviewed ONEIDA education with the patient, including the detriments of untreated ONEIDA. After her eye surgery she will consider getting a sleep study. Atrial fibrillation 01/21/2018 Overview: 1st episode after TUR, recvd Diltiazem Last Assessment & Plan: Continue xarelto and atenolol, no sx of afib. She is anxious about continuing her xarelto through her cataract surgery. I reassured her if the surgeon is okay with her continuing it through the procedure it is okay, but if it is making her anxious she can hold it up to a few days before. Elevated fasting glucose 09/19/2017 Vitamin D deficiency 12/23/2016 GERD (gastroesophageal reflux disease) 0 12/23/2016 Osteoporosis 12/23/2016 Old LA (myocardial infarction) 7 Overview: S/p stent 2000 HTN (hypertension) 11/19/2016 Last Assessment & Plan: Slightly elevated, continue current antihypertensives. Discussed that untreated ONEIDA can cause resistent HTN, recommend she f/u with CPAP. 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 Resolved Problems Problem Noted Date Resolved Date CAD (coronary artery disease) 11/19/2016 Immunizations Name Administration Dates Next Due COVID-19 (Pfizer) 11/05/2020 COVID-19 (Pfizer) Pt Reported 11/05/2021, 022 Influenza vaccine high dose age 65 and over 05/03/2023,05/07/2022,06/09/2021,05/13,04/20/2019,04/25/2018,04/23/2017 Pneumoccoccal(Adult) Polysac charide PPSV23 03/30/2015 Pneumococcal Conjugate PCV-13 04/25/2018 TD (STATE SUPPLIED FOR ADULT S AND CHILDREN) 04/25/2018 Family History Medical History Relation Name Comments vaginal cancer Daughter 1 CAD Daughter 2 LA Father CA Lung Mother CA Colon Paternal Grandmother CAD Son LA Son CA Breast Negative Hx Relation Name Status Comments Daughter 1 Daughter 2 Alive Father Mother Paternal Grandmother Son Alive Social History Tobacco Use Types Packs/Day Years Used Date Smoking Tobacco: Former Cigarettes Q uit: 2000 Smokeless Tobacco: Never Tobacco Cessation:Counseling Given: Not Answered Alcohol Use Standard Drinks/Week Comments No 0 [...] often do you attend chur ch or cheondoism services? Never 08/16/2023 Do you belong to any clubs o r organizations such as buddhism groups, unions, fraternal or athletic groups, or [...] place to sleep or slept in a half-way (including now)? No 08/16/2023 Sex Assigned at Date Recorded Not on file Job Start Date Occupation Industry Not on file Not on file Not on file Last Filed Vital Signs Vital Sign Reading Time Taken Comments Blood Pressure 138/88 02/28/2024 10:54 AM EDT Pulse 60 05/03/2023 1:18 PM EDT Temperature 36.7 C (98 F) 05/03/2023 1:18 PM EDT Respiratory Rate 16 10/26/2021 1:31 PM EDT Oxygen Saturation 96% 02/28/2024 10:54 AM EDT Inhaled Oxygen Concentration - - Weight 93 kg (205 lb) 02/28/2024 10:54 AM EDT Height 160 cm (5' 3 ) 02/28/2024 10:54 AM EDT Body Mass Index 36.31 02/28/2024 10:54 AM EDT Plan of Treatment Health Maintenance Due Date Last Done Comments SHINGLES VACCINE (1 of 2) 1996 BONE DENSITY SCREENING 02/21/2019 02/21/2017, 2014 MAMMOGRAM 04/16/2019 04/16/2018, 01/27, 09/01/2015 DIABETES: BLOOD SUGAR CONTRO L TEST (HGBA1C) 07/31/2023 04/30/2023, 11/06/2022, 05/07/2022, Additional history exists DIABETES/HEART DISEASE: LESLY AL CHOLESTEROL (LDL) 11/07/2023 11/06/2022, 09/07/2020, 08/19/2019, Additional history exists DIABETES: ANNUAL URINE PROTE IN TEST (MICROALBUMIN) 11/07/2023 11/06/2022, 06/07/2021, 05/13/2020, Additional history exists DIABETES: ANNUAL FOOT EXAM 11/24/202311/23, 06/09/2021, 05/13/2020 (Completed), Additional history exists BMI CHECK/ADVISE 07/29/2024 05/03/2023, , 06/08/2022, Additional history exists DIABETES: ANNUAL EYE EXAM 08/05/20242023, 05/29/2022 (External Completion of test per patient (Patient reports normal results)), 04/28/2020 (External Completion), Additional history exists DEPRESSION SCREEN 08/16/2024 08/16/2023, , 02/17/2019, Additional history exists FALL RISK ASSESSMENT 09/02/2024 09/02/2023, 06/08/2022, 10/26/2021, Additional history exists Covid-19 Vaccine (2022-2 4 season) 2025 11/05/2021, 10/12/2021, 11/05/2020 INFLUENZA (#1) 2025 05/03/2023, 04/28, 06/09/2021, Additional history exists DTAP/TDAP/TD (2 - Td or Tdap) 08/29/2028 (Exception), 04/25/2018 HEPATITIS C SCREENING Completed 01/21/2017 PNEUMOCOCCAL VACCINE Completed 04/25/2018, 03/30/2015, 03/30/2015 (External Completion of Vaccination per patient) Care Teams Master At Arms Relationship Specialty Start Date End Date Lou Baptiste MD [address] [place] [phone] PCP - General Internal Medicine 12/05/23 Thang Kang MD [address] [place] [id number] Photocopying Machine Operator Cardiovascular Disease 08/10/20 John Burleson MD [address] [place], [place] [id number] Specialist Cardiology 12/06/21 Alicia Burnham NP [address] [facility] [address] [place] [address] Cardiology 12/06/21 Artemio Tellez [address] [address] Urology 06/08/22 [facility] urology 10/26/21
--- OUTSIDE RECORDS SUMMARY | 2025-05-24 17:26 | XMS_ITS | Encounter Summary ---
Author Organization [facility] Address [address] [place] [address] Care Team Providers Care Zipper Trimmer Hand Name Role Phone Thang Kang MD Unavailable [phone] Cinthia Molina PA-C Unavailable Unavailab Andriy Farrell DO Primary Care Provider Unavaila John Velasquez MD Unavailable [phone] Alicia Burnham NP Unavailable [phone] Artemio Tellez Unavailable Unavailable Lou Baptiste MD Primary Care Provider Un available Reason for Visit * Reason Comments E-prescribe Rx Request Encounter Details Date Type Department Care Team Description 10/18/2022 Refill Adult Medicine [address] [address] Andriy Zimmerman DO E-prescribe Rx Request Social [...] often do you attend chur ch or yarsani services? Never 08/16/2023 Do you belong to any clubs o r organizations such as taoist groups, unions, fraternal or athletic groups, or [...] place to sleep or slept in a alf (including now)? No 08/16/2023 Sex Assigned at Date Recorded Not on file Job Start Date Occupation Industry Not on file Not on file Not on file documented as of this encounter Miscellaneous Notes * Telephone Encounter - Cait Noriega - 10/18/2022 3:57 PM EDT duplicate documented in this encounter Plan of Treatment Not on file documented as of this encounter Visit Diagnoses Not on filedocumented in this encounter Care Teams Zipper Trimmer Hand Relationship Specialty Start Date End Date Andriy Zimmerman DO [address] [place] [address] PCP - General Internal Medicine 08/17/21 12/04/23 Lou Baptiste MD [address] [facility] [address] [place] [address] PCP - General Internal Medicine 12/05/23 Thang Kang MD [address] [place] [address] Corporate Executive Cardiovascular Disease 08/10/20 Cinthia Molina PA-C [address] [place] [address] Cardiology 09/05/20 03/12/24 John Burleson MD [address] [place] [address] Specialist Cardiology 12/06/21 Alicia Burnham NP [address] [address] Cardiology 12/06/21 Artemio Tellez [address] [address] Urology 06/08/22 [facility] urology 10/26/21 documented as of this encounter
--- OUTSIDE RECORDS SUMMARY | 2025-05-24 17:26 | XMS_ITS | Encounter Summary ---
Author Organization [facility] Address [address] [place] [address] Care Team Providers Care Computing Machine Operator Name Role Phone Steffen Morrissey MD Primary Care Provider Unavailable Thang Kang MD Unavailable [phone] Cinthia Molina PA-C Unavailable Unavailab Andriy Farrell DO Primary Care Provider Unavaila John Velasquez MD Unavailable [phone] Alicia Burnham NP Unavailable [phone] Artemio Tellez Unavailable Unavailable Lou Baptiste MD Primary Care Provider Un available Encounter Details Date Type Department Care Team Description 10/02/2019 Cable Puller Report Medical Records [address] [place] [address] Artemio Tellez Social History Tobacco Use Types Packs/Day Years [...] often do you attend chur ch or jehovah's witness services? Never 08/16/2023 Do you belong to any clubs o r organizations such as uatsdin groups, unions, fraternal or athletic groups, or [...] place to sleep or slept in a group home (including now)? No 08/16/2023 Sex Assigned at Date Recorded Not on file Job Start Date Occupation Industry Not on file Not on file Not on file documented as of this encounter Plan of Treatment Not on file documented as of this encounter Visit Diagnoses Not on filedocumented in this encounter Care Teams Computing Machine Operator Relationship Specialty Start Date End Date Steffen Morrissey MD PCP - General Internal Medicine 11/06/1607/29 Andriy Zimmerman DO [address] [address] PCP - General Internal Medicine 08/17/21 12/04/23 Lou Baptiste MD [address] [address] PCP - General Internal Medicine 12/05/23 Thang Kang MD [address] [facility] [address] [place] [address] Polysomnographic Technologist Cardiovascular Disease 08/10/20 Cinthia Molina PA-C [address] [place] [address] Cardiology 09/05/20 03/12/24 John Burleson MD [address] [facility] [address] [place] [address] Specialist Cardiology 12/06/21 Alicia Burnham NP [address] [facility] [address] [place] [address] Cardiology 12/06/21 Artemio Tellez [address] [address] Urology 06/08/22 [facility] urology 10/26/21 documented as of this encounter
--- OUTSIDE RECORDS SUMMARY | 2025-05-24 17:26 | XMS_ITS | Encounter Summary ---
Author Organization [facility] Address [address] [place] [address] Care Team Providers Care Tool Room Attendant Name Role Phone Thang Kang MD Unavailable [phone] Cinthia Molina PA-C Unavailable Unavailab Andriy Farrell DO Primary Care Provider Unavaila John Velasquez MD Unavailable [phone] Alicia Burnham NP Unavailable [phone] Artemio Tellez Unavailable Unavailable Lou Baptiste MD Primary Care Provider Un available Encounter Details Date Type Department Care Team Description 07/26/2022 Pt. Non Urgent Medic al Question Adult Medicine - [address] [address] Donita Alva PA-C Social History Tobacco Use [...] often do you attend chur ch or tenriism services? Never 08/16/2023 Do you belong to any clubs o r organizations such as methodist groups, unions, fraternal or athletic groups, or [...] place to sleep or slept in a jail (including now)? No 08/16/2023 Sex Assigned at Date Recorded Not on file Job Start Date Occupation Industry Not on file Not on file Not on file documented as of this encounter Miscellaneous Notes * Telephone Encounter - Loren Ahuja M.A. - 07/26/2022 8:31 AM ESTFrom: Precious Glover To: Agueda Alva Sent: 07/26/2022 8:07 AM EST Subject: Fax number Mario Duckworth, [place] don,t have the fax number for [address] Thanks. Precious documented in this encounter Plan of Treatment Not on file documented as of this encounter Visit Diagnoses Not on filedocumented in this encounter Care Teams Tool Room Attendant Relationship Specialty Start Date End Date Andriy Zimmerman DO [address] [place] [address] PCP - General Internal Medicine 08/17/21 12/04/23 Lou Baptiste MD [address] [place] [address] PCP - General Internal Medicine 12/05/23 Thang Kang MD [address] [place] [address] Cupola Charger Cardiovascular Disease 08/10/20 Cinthia Molina PA-C [address] [place] [address] Cardiology 09/05/20 03/12/24 John Burleson MD [address] [facility] [address] [place] [address] Specialist Cardiology 12/06/21 Alicia Burnham NP [address] [facility] [address] [place] [address] Cardiology 12/06/21 Artemio Tellez [address] [address] Urology 06/08/22 [facility] urology 10/26/21 documented as of this encounter
--- OUTSIDE RECORDS SUMMARY | 2025-05-24 17:26 | XMS_ITS | Encounter Summary ---
Author Organization [facility] Address [address] [place] [address] Care Team Providers Care Loop Sewer Name Role Phone Steffen Morrissey MD Primary Care Provider Unavailable Thang Kang MD Unavailable [phone] Cinthia Molina PA-C Unavailable Unavailab Andriy Farrell DO Primary Care Provider Unavaila John Velasquez MD Unavailable [phone] Alicia Burnham NP Unavailable [phone] Artemio Tellez Unavailable Unavailable Lou Baptiste MD Primary Care Provider Un available Reason for Visit * Reason Comments E-prescribe Rx Request Encounter Details Date Type Department Care Team Description 04/26/2020 Refill Adult Medicine [address] [address] Steffen Morrissey MD E-prescribe Rx Request Social [...] often do you attend chur ch or sikhism services? Never 08/16/2023 Do you belong to any clubs o r organizations such as bahai groups, unions, fraternal or athletic groups, or [...] place to sleep or slept in a snf (including now)? No 08/16/2023 Sex Assigned at Date Recorded Not on file Job Start Date Occupation Industry Not on file Not on file Not on file documented as of this encounter Miscellaneous Notes * Telephone Encounter - Saida Calloway M.A. - 04/26/2020 2:17 PM EDT Pt has enough till next visit * Telephone Encounter - Christine Robles - 04/26/2020 1:47 PM EDT Patient would like script to be: E-PRESCRIBED/FAXED TO PHARMACY WHEN WAS THE PATIENT'S LAST APPOINTMENT IN ADULT MEDICINE? 11/25/2019 WHEN WAS THE LAST TIME THE PATIENT SAW THEIR PCP? Same as above Does patient have an upcoming appointment? Yes 05/03/2020 (THE MEDICATION REQUESTED IS ON THE MED LIST ABOVE) All of the medications requested were on the CURRENT MEDS list Did you check the Pharmacy information above?: YES Patient wants: 30 -day supply Is this a mail order prescription request ? NO If the refill is from a FAXED refill request what is the RX # listed on the fax? N/A Patients current insurance carrier is: [place] / [place] / Product Type: MEDICARE [id number] documented in this encounter Plan of Treatment Not on file documented as of this encounter Visit Diagnoses Not on filedocumented in this encounter Care Teams Loop Sewer Relationship Specialty Start Date End Date Steffen Morrissey MD PCP - General Internal Medicine 11/06/1607/29 Andriy Zimmerman DO [address] [facility] [address] [place] [address] PCP - General Internal Medicine 08/17/21 12/04/23 Lou Baptiste MD [address] [facility] [address] [place] [address] PCP - General Internal Medicine 12/05/23 Thang Kang MD [address] [place] [address] Reports Analyst Cardiovascular Disease 08/10/20 Cinthia Molina PA-C [address] [place] [address] Cardiology 09/05/20 03/12/24 John Burleson MD [address] [place] [address] Specialist Cardiology 12/06/21 Alicia Burnham NP [address] [facility] [address] [place] [address] Cardiology 12/06/21 Artemio Tellez [address] [facility] [address] [place] [address] Urology 06/08/22 [facility] urology 10/26/21 documented as of this encounter
--- OUTSIDE RECORDS SUMMARY | 2025-05-24 17:26 | XMS_ITS | Encounter Summary ---
Author Organization [facility] Address [address] [place] [address] Care Team Providers Care Monument Stonecutter Name Role Phone Steffen Morrissey MD Primary Care Provider Unavailable Thang Kang MD Unavailable [phone] Cinthia Molina PA-C Unavailable Unavailab Andriy Farrell DO Primary Care Provider Unavaila John Velasquez MD Unavailable [phone] Alicia Burnham NP Unavailable [phone] Artemio Tellez Unavailable Unavailable Lou Baptiste MD Primary Care Provider Un available Reason for Visit * Reason Comments E-prescribe Rx Request amlodipine Encounter Details Date Type Department Care Team Description 11/29/2020 Refill Cardio PVC POC [address] [address] Thang Kang MD 300 [facility] [address] [place], [place] [id number] E-prescribe Rx Request (amlodipine ) Social History Tobacco Use Types Packs/Day Years [...] How often do you attend chur or anglican services? Never 08/16/2023 Do you belong to any clubs o r organizations such as mandaeism groups, unions, fraternal or athletic groups, or [...] place to sleep or slept in a long-term (including now)? No 08/16/2023 Sex Assigned at Date Recorded Not on file Job Start Date Occupation Industry Not on file Not on file Not on file documented as of this encounter Miscellaneous Notes * Telephone Encounter - Iram Benoit C.M.A. - 11/29/2020 10:30 AM EDT Rx for amlodipine renewed; I spoke with Linda at pharmacy and for what ever reason they dont have the script from Jul on rec. documented in this encounter Plan of Treatment Not on file documented as of this encounter Visit Diagnoses Not on filedocumented in this encounter Care Teams Monument Stonecutter Relationship Specialty Start Date End Date Steffen Morrissey MD PCP - General Internal Medicine 11/06/1607/29 Andriy Zimmerman DO [address] [place] [address] PCP - General Internal Medicine 08/17/21 12/04/23 Lou Baptiste MD [address] [facility] [address] [place] [address] PCP - General Internal Medicine 12/05/23 Thang Kang MD [address] [place] [address] Bicycle Repairer Cardiovascular Disease 08/10/20 Cinthia Molina PA-C [address] [place] [address] Cardiology 09/05/20 03/12/24 John Burleson MD [address] [place] [address] Specialist Cardiology 12/06/21 Alicia Burnham NP [address] [facility] [address] [place] [phone] Cardiology 12/06/21 Artemio Tellez [address] [facility] [address] [place] [address] Urology 06/08/22 [facility] urology 10/26/21 documented as of this encounter
--- OUTSIDE RECORDS SUMMARY | 2025-05-24 17:26 | XMS_ITS | Encounter Summary ---
Author Organization [facility] Address [address] [place] [address] Care Team Providers Care Special Agent Secret Service Name Role Phone Steffen Morrissey MD Primary Care Provider Unavailable Thang Kang MD Unavailable [phone] Cinthia Molina PA-C Unavailable Unavailab Andriy Farrell DO Primary Care Provider Unavaila John Velasquez MD Unavailable [phone] Alicia Burnham NP Unavailable [phone] Artemio Tellez Unavailable Unavailable Lou Baptiste MD Primary Care Provider Un available Reason for Visit * Reason Onset Date Comments medication problems 03/28/2020 Encounter Details Date Type Department Care Team Description 03/28/2020 Telephone Adult Medicine [address] [address] Steffen Morrissey MD medication problems Social History Tobacco Use Types [...] often do you attend chur ch or worship services? Never 08/16/2023 Do you belong to [...] encounter Miscellaneous Notes * Telephone Encounter - Donna Martinez L.P.N. - 03/28/2020 12:38 PM EDT Patient notified * Telephone Encounter - Steffen Morrissey MD - 03/28/2020 12:25 PM EDT Changed to regular Metformin, but 250mg bid. Please inform pt of the change. * Telephone Encounter - Donna Martinez L.P.N. - 03/28/2020 11:07 AM EDT Patient notified glucophage-xr 500 mg has been re-called Forwarded for recommendation. Lab Results Component Value Date HGBA1C 6.7 08/19/2019 MALBUR 71.6 08/29/2018 MALBCR 45.3 08/29/2018 CHOL 142 08/19/2019 LDL 68 08/19/2019 HDL 52 08/19/2019 TRIG 111 08/19/2019 GLU 78 08/19/2019 CREAT 0.90 08/19/2019 * Telephone Encounter - Bianca Ramos - 03/28/2020 11:05 AM EDT Who is calling? The patient Name of the medication metformin (GLUCOPHAGE-XR) 500 MG 24 hr tablet What is the specific problem or interaction? Patient got a notification that this med has been recalled If the patient is having a problem with taking the med - how long has the problem been going on? N/A documented in this encounter Plan of Treatment Not on file documented as of this encounter Visit Diagnoses Not on filedocumented in this encounter Care Teams Special Agent Secret Service Relationship Specialty Start Date End Date Steffen Morrissey MD PCP - General Internal Medicine 11/06/1607/29 Andriy Zimmerman DO [address] [address] PCP - General Internal Medicine 08/17/21 12/04/23 Lou Baptiste MD [address] [address] PCP - General Internal Medicine 12/05/23 Thang Kang MD [address] [address] Staffing And Scheduling Coordinator Cardiovascular Disease 08/10/20 Cinthia Molina PA-C [address] [place] [address] Cardiology 09/05/20 03/12/24 John Burleson MD [address] [address] Specialist Cardiology 12/06/21 Alicia Burnham NP [address] [facility] [address] [place] [address] Cardiology 12/06/21 Artemio Tellez [address] [facility] [address] [place] [address] Urology 06/08/22 [facility] urology 10/26/21 documented as of this encounter
--- OUTSIDE RECORDS SUMMARY | 2025-05-24 17:26 | XMS_ITS | Encounter Summary ---
Author Organization [facility] Address [address] [place] [address] Care Team Providers Care Supervisor Roving Department Name Role Phone Steffen Morrissey MD Primary Care Provider Unavailable Thang Kang MD Unavailable [phone] Cinthia Molina PA-C Unavailable Unavailab Andriy Farrell DO Primary Care Provider Unavaila John Velasquez MD Unavailable [phone] Alicia Burnham NP Unavailable [phone] Artemio Tellez Unavailable Unavailable Lou Baptiste MD Primary Care Provider Un available Encounter Details Date Type Department Care Team Description 04/18/2018 Business Doc Medical Records [address] [place] [address] Abstract, Provider Social History Tobacco Use Types [...] often do you attend chur ch or synagogue services? Never 08/16/2023 Do you belong to any clubs o r organizations such as baptist groups, unions, fraternal or athletic groups, or [...] on filedocumented in this encounter Care Teams Supervisor Roving Department Relationship Specialty Start Date End Date Steffen Morrissey MD PCP - General Internal Medicine 11/06/1607/29 Andriy Zimmerman, [address] [place] [address] PCP - General Internal Medicine 08/17/21 12/04/23 Lou Baptiste MD [address] [address] PCP - General Internal Medicine 12/05/23 Thang Kang MD [address] [place] [address] Field Technician Cardiovascular Disease 08/10/20 Cinthia Molina PA-C [address] [place] [address] Cardiology 09/05/20 03/12/24 John Burleson MD [address] [place] [address] Specialist Cardiology 12/06/21 Alicia Burnham NP [address] [facility] [address] [place] [address] Cardiology 12/06/21 Artemio Tellez [address] [address] Urology 06/08/22 [facility] urology 10/26/21 documented as of this encounter
--- OUTSIDE RECORDS SUMMARY | 2025-05-24 17:26 | XMS_ITS | Encounter Summary ---
Author Organization [facility] Address [address] [place] [address] Care Team Providers Care Pole Shaver Name Role Phone Thang Kang MD Unavailable [phone] Cinthia Molina PA-C Unavailable Unavailab Andriy Farrell DO Primary Care Provider Unavaila John Velasquez MD Unavailable [phone] Alicia Burnham NP Unavailable [phone] Artemio Tellez Unavailable Unavailable Lou Baptiste MD Primary Care Provider Un available Reason for Visit * Reason Comments E-prescribe Rx Request Encounter Details Date Type Department Care Team Description 09/29/2022 Refill Adult Medicine - [place] [address] [place] [address] Jaja Yee MD [address] [place] [address] E-prescribe Rx Request Social History Tobacco Use [...] often do you attend chur ch or roman catholic services? Never 08/16/2023 Do you belong to any clubs o r organizations such as orthodox groups, unions, fraternal or athletic groups, [...] to sleep or slept in a senior living (including now)? No 08/16/2023 Sex Assigned at Date Recorded Not on file Job Start Date Occupation Industry Not on file Not on file Not on file documented as of this encounter Plan of Treatment Not on file documented as of this encounter Visit Diagnoses Not on filedocumented in this encounter Care Teams Pole Shaver Relationship Specialty Start Date End Date Andriy Zimmerman, [address] [address] PCP - General Internal Medicine 08/17/21 12/04/23 Lou Baptiste MD [address] [address] PCP - General Internal Medicine 12/05/23 Thang Kang MD [address] [address] Hostler Helper Cardiovascular Disease 08/10/20 Cinthia Molina PA-C [address] [address] Cardiology 09/05/20 03/12/24 John Burleson MD [address] [address] Specialist Cardiology 12/06/21 Alicia Burnham NP [address] [address] Cardiology 12/06/21 Artemio Tellez [address] [address] Urology 06/08/22 [facility] urology 10/26/21 documented as of this encounter
--- OUTSIDE RECORDS SUMMARY | 2025-05-24 17:26 | XMS_ITS | Encounter Summary ---
Author Organization [facility] Address [address] [place] [address] Care Team Providers Care Collateral Clerk Name Role Phone Steffen Morrissey MD Primary Care Provider Unavailable Thang Kang MD Unavailable [phone] Cinthia Molina PA-C Unavailable Unavailab Andriy Farrell DO Primary Care Provider Unavaila John Velasquez MD Unavailable [phone] Alicia Burnham NP Unavailable [phone] Artemio Tellez Unavailable Unavailable Lou Baptiste MD Primary Care Provider Un available Encounter Details Date Type Department Care Team Description 11/20/2016 Release of Information Medical Records [address] [place] [address] Abstract, Provider Social History Tobacco Use Types Packs/Day Years Used Date Smoking Tobacco: Former Comments:smoked x 40yrs x 1 ppd Alcohol [...] week 08/16/2023 How often do you attend [facility] or confucianist services? Never 08/16/2023 Do you belong to any clubs o r organizations such as zoroastrianism groups, unions, fraternal or athletic groups, or [...] on filedocumented in this encounter Care Teams Collateral Clerk Relationship Specialty Start Date End Date Steffen Morrissey MD PCP - General Internal Medicine 11/06/1607/29 Andriy Zimmerman, [address] [place] [address] PCP - General Internal Medicine 08/17/21 12/04/23 Lou Baptiste MD [address] [place] [address] PCP - General Internal Medicine 12/05/23 Thang Kang MD [address] [place] [address] Motor Vehicle Emissions Inspector Cardiovascular Disease 08/10/20 Cinthia Molina PA-C [address] [place] [address] Cardiology 09/05/20 03/12/24 John Burleson MD [address] [place] [address] Specialist Cardiology 12/06/21 Alicia Burnham NP [address] [place] [address] Cardiology 12/06/21 Artemio Tellez [address] [place] [address] Urology 06/08/22 [facility] urology 10/26/21 documented as of this encounter
--- OUTSIDE RECORDS SUMMARY | 2025-05-24 17:26 | XMS_ITS | Encounter Summary ---
Author Organization [facility] Address [address] [place] [address] Care Team Providers Care Terminal Operator Name Role Phone Steffen Morrissey MD Primary Care Provider Unavailable Thang Kang MD Unavailable [phone] Cinthia Molina PA-C Unavailable Unavailab Andriy Farrell DO Primary Care Provider Unavaila John Velasquez MD Unavailable [phone] Alicia Burnham NP Unavailable [phone] Artemio Tellez Unavailable Unavailable Lou Baptiste MD Primary Care Provider Un available Encounter Details Date Type Department Care Team Description 04/12/2017 Computer Aided Design Technician Report Medical Records [address] [place] [address] [facility] Urology [address] [place] [address] Social History Tobacco Use Types Packs/Day Years [...] often do you attend chur ch or adventist services? Never 08/16/2023 Do you belong to any clubs o r organizations such as quaker groups, unions, fraternal or athletic groups, or [...] on filedocumented in this encounter Care Teams Terminal Operator Relationship Specialty Start Date End Date Steffen Morrissey MD PCP - General Internal Medicine 11/06/1607/29 Andriy Zimmerman, [address] [address] PCP - General Internal Medicine 08/17/21 12/04/23 Lou Baptiste MD [address] [address] PCP - General Internal Medicine 12/05/23 Thang Kang MD [address] [address] Fruit Thinner Cardiovascular Disease 08/10/20 Cinthia Molina PA-C [address] [address] Cardiology 09/05/20 03/12/24 John Burleson MD [address] [address] Specialist Cardiology 12/06/21 Alicia Burnham NP [address] [phone] Cardiology 12/06/21 Artemio Tellez [address] [address] Urology 06/08/22 [facility] urology 10/26/21 documented as of this encounter
--- OUTSIDE RECORDS SUMMARY | 2025-05-24 17:26 | XMS_ITS | Clinical Summary ---
Author Organization [address] [place] [address] [place] [phone] Phone Care Team Providers Care Pattern Cleaner Name Role Phone Mariposa Cortes MD Primary Care Provider [phone] Allergies Active Allergy Reactions Criticality Noted Date [...] Date SOB (shortness of breath) 12/09/2024 A-fib ([facility] V24, [facility] V28) 12/09/2024 Assessment & Plan (01/07/2025 [...] Type Department Care Team Description 05/11/2025 Telephone [facility] [address] [facility] [address] [place] [address] Thang Kang MD from Last 3 Months Surgical History Surgery Date Site/Laterality Comments CYSTOSCOPY PROCEDURE: [facility] CYSTOURETHROSCOPY; COMMENT: for bladder tumor APPENDECTOMY PROCEDURE: HISTORICAL APPENDECTOMY SECTION PROCEDURE: HISTORICAL DELIVERY; COMMENT: times 2 ANKLE SURGERY PROCEDURE: HISTORICAL ANKLE SURGERY; COMMENT: jonny kilgore surgery COLONOSCOPY 04/20/2015 PROCEDURE: HISTORICAL COLONOSCOPY; COMMENT: tics, repeat 5 years Medical History Medical History Date Comments Hyperlipidemia 11/19/2016 DX:Hyperlipidemi a HTN (hypertension) 11/19/2016 DX:HTN (hyper tension) CAD (coronary artery disease) 11/19/2016 DX :CAD (coronary artery disease) Old VA (myocardial infarction) 11/19/2016 D X:Old VA (myocardial infarction); COMMENT: S/p stent Vitamin D deficiency 12/23/2016 DX:Vitamin D deficiency GERD (gastroesophageal reflux disease) DX:GERD (gastroesophageal reflux disease) Osteoporosis 12/23/2016 DX:Osteoporosis Atrial fibrillation ([facility] V24, [facility] V28) 01/21/2018 DX:Atrial fibrillation (HCC) Prediabetes 04/25/2018 DX:Prediabetes ONEIDA (obstructive sleep apnea) 04/25/2018 DX :ONEIDA (obstructive sleep apnea) Bladder cancer ([facility] V24, [facility] V28) 2017 DX:Bladder cancer (HCC) Family [...] should be classified as having osteoporosis. The [facility] Department of Internal Medicine recommends using National [...] Phillysher should beclassified as having osteoporosis. The [facility] Department of Internal Medicine recommendsusing National Osteoporosis [...] Insurance MEDICARE MEDICAID - [place] Care Teams Pattern Cleaner Relationship Specialty Start Date End Date Mariposa Cortes MD PCP - General Internal Medicine 12/09/24
--- OUTSIDE RECORDS SUMMARY | 2025-05-24 17:26 | XMS_ITS | Encounter Summary ---
Author Organization [facility] Address [address] [place] [address] Care Team Providers Care Answering Service Telephone Operator Name Role Phone Thang Kang MD Unavailable [phone] Cinthia Molina PA-C Unavailable Unavailab Andriy Farrell DO Primary Care Provider Unavaila John Velasquez MD Unavailable [phone] Alicia Burnham NP Unavailable [phone] Artemio Tellez Unavailable Unavailable Lou Baptiste MD Primary Care Provider Un available Encounter Details Date Type Department Care Team Description 12/27/2022 Refill Adult Medicine - [facility] [address] [place] [address] Bianca Fallon PA-C [address] [place] [address] Social History Tobacco Use Types Packs/Day Years [...] often do you attend chur ch or confucianist services? 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) documented in this encounter Care Teams Answering Service Telephone Operator Relationship Specialty Start Date End Date Andriy Zimmerman DO [address] [address] PCP - General Internal Medicine 08/17/21 12/04/23 Lou Baptiste MD [address] [address] PCP - General Internal Medicine 12/05/23 Thang Kang MD [address] [address] Vibrating Screen Operator Cardiovascular Disease 08/10/20 Cinthia Molina PA-C [address] [facility] [address] [place] [address] Cardiology 09/05/20 03/12/24 John Burleson MD [address] [address] Specialist Cardiology 12/06/21 Alicia Burnham NP [address] [facility] [address] [place] [address] Cardiology 12/06/21 Artemio Tellez [address] [address] Urology 06/08/22 [facility] urology 10/26/21 documented as of this encounter
--- OUTSIDE RECORDS SUMMARY | 2025-05-24 17:26 | XMS_ITS | Encounter Summary ---
Author Organization [facility] Address [address] [place] [address] Care Team Providers Care Top Collar Baster Name Role Phone Thang Kang MD Unavailable [phone] Cinthia Molina PA-C Unavailable Unavailab Andriy Farrell DO Primary Care Provider Unavaila John Velasquez MD Unavailable [phone] Alicia Burnham NP Unavailable [phone] Artemio Tellez Unavailable Unavailable Lou Baptiste MD Primary Care Provider Un available Encounter Details Date Type Department Care Team Description 10/09/2022 Orders Only Adult Medicine - [address] [address] Andriy Zimmerman DO Preoperative examination (Primary Dx) [...] often do you attend chur ch or jewish services? Never 08/16/2023 Do you belong to any clubs o r organizations such as adventist groups, unions, fraternal or athletic groups, or [...] place to sleep or slept in a chcf (including now)? No 08/16/2023 Sex Assigned at Date Recorded Not on file Job Start Date Occupation Industry Not on file Not on file Not on file documented as of this encounter Plan of Treatment Scheduled Orders Name Type Priority Associated Diagnoses Orde r Schedule [place] ECG ROUTINE ECG W/LEAST 12 LDS W/I&R Cardiology Routine Preoperative examination 1 Occurrences starting 10/09/2022 until 10/09/2023 documented as of this encounter Visit Diagnoses Diagnosis Preoperative examination- Primary Preoperative examination, unspecified documented in this encounter Care Teams Top Collar Baster Relationship Specialty Start Date End Date Andriy Zimmerman, [address] [facility] [address] [place] [address] PCP - General Internal Medicine 08/17/21 12/04/23 Lou Baptiste MD [address] [address] PCP - General Internal Medicine 12/05/23 Thang Kang MD [address] [facility] [address] [place] [address] Latin American Studies Director Cardiovascular Disease 08/10/20 Cinthia Molina PA-C [address] [facility] [address] [place] [address] Cardiology 09/05/20 03/12/24 John Burleson MD [address] [facility] [address] [place] [address] Specialist Cardiology 12/06/21 Alicia Burnham NP [address] [facility] [address] [place] [address] Cardiology 12/06/21 Artemio Tellez [address] [address] Urology 06/08/22 [facility] urology 10/26/21 documented as of this encounter
--- OUTSIDE RECORDS SUMMARY | 2025-05-24 17:26 | XMS_ITS | Encounter Summary ---
Author Organization [facility] Address [address] [place] [address] Care Team Providers Care Beading Sawyer Name Role Phone Thang Kang MD Unavailable [phone] John Burleson MD Unavailable [phone] Alicia Burnham NP Unavailable [phone] Artemio Tellez Unavailable Unavailable Lou Baptiste MD Primary Care Provider Un available Encounter Details Date Type Department Care Team Description 04/22/2024 Refill Adult Medicine [facility] [address] [place] [address] Donita Alva PA-C Social History Tobacco Use [...] week 08/16/2023 How often do you attend [facility] or quaker services? Never 08/16/2023 Do you belong to any clubs o r organizations such as druze groups, unions, fraternal or athletic groups, or [...] (HCC) documented in this encounter Care Teams Beading Sawyer Relationship Specialty Start Date End Date Lou Baptiste MD [address] [address] PCP - General Internal Medicine 12/05/23 Thang Kang MD [address] [address] Regional Engineer Cardiovascular Disease 08/10/20 John Burleson MD [address] [address] Specialist Cardiology 12/06/21 Alicia Brunham NP [address] [address] Cardiology 12/06/21 Artemio Tellez [address] [address] Urology 06/08/22 [facility] urology 10/26/21 documented as of this encounter
--- OUTSIDE RECORDS SUMMARY | 2025-05-24 17:26 | XMS_ITS | Encounter Summary ---
Author Organization [facility] Address [address] [place] [address] Care Team Providers Care Diesel Trailer Mechanic Name Role Phone Thang Kang MD Unavailable [phone] Cinthia Molina PA-C Unavailable Unavailab Andriy Farrell DO Primary Care Provider Unavaila John Velasquez MD Unavailable [phone] Alicia Burnham NP Unavailable [phone] Artemio Tellez Unavailable Unavailable Lou Baptiste MD Primary Care Provider Un available Reason for Visit * Reason Comments E-prescribe Rx Request Encounter Details Date Type Department Care Team Description 10/18/2022 Refill Adult Medicine [address] [address] Donita Alva PA-C E-prescribe Rx Request Social History Tobacco Use [...] Telephone Encounter - Donna Martinez L.P.N. - 10/18/2022 4:35 PM EDT Lab Results Component Value Date NA 139 05/07/2022 K 4.2 05/07/2022 CO2 29 05/07/2022 CL 105 05/07/2022 BUN 19 05/07/2022 CREAT 0.98 05/07/2022 GLU 148 05/07/2022 CA 9.5 05/07/2022 GFR 60 05/07/2022 Lab Results Component Value Date NA 139 05/07/2022 K 4.2 05/07/2022 CO2 29 05/07/2022 CL 105 05/07/2022 BUN 19 05/07/2022 CREAT 0.98 05/07/2022 GLU 148 05/07/2022 CA 9.5 05/07/2022 GFR 60 05/07/2022 Medication request pended for your review. * Telephone Encounter - Cait Noriega - 10/18/2022 3:55 PM EDT Refills Last office visit: 06/08/22 Last pcp: 05/07/2022 Next office visit: 11/23/2022 documented in this encounter Plan of Treatment Not on file documented as of this encounter Visit Diagnoses Diagnosis Seasonal allergies Allergic rhinitis, cause unspecified documented in this encounter Care Teams Diesel Trailer Mechanic Relationship Specialty Start Date End Date Andriy Zimmerman DO [address] [place] [address] PCP - General Internal Medicine 08/17/21 12/04/23 Lou Baptiste MD [address] [facility] [address] [place] [address] PCP - General Internal Medicine 12/05/23 Thang Kang MD [address] [place] [address] Maintenance Manager Cardiovascular Disease 08/10/20 Cinthia Molina PA-C [address] [place] [address] Cardiology 09/05/20 03/12/24 John Burleson MD [address] [place] [address] Specialist Cardiology 12/06/21 Alicia Burnham NP [address] [facility] [address] [place] [address] Cardiology 12/06/21 Artemio Tellez [address] [facility] [address] [place] [address] Urology 06/08/22 [facility] urology 10/26/21 documented as of this encounter
--- OUTSIDE RECORDS SUMMARY | 2025-05-24 17:26 | XMS_ITS | Encounter Summary ---
Author Organization [facility] Address [address] [place] [address] Care Team Providers Care Waste Cotton Cleaner Name Role Phone Steffen Morrissey MD Primary Care Provider Unavailable Thang Kang MD Unavailable [phone] Cinthia Molina PA-C Unavailable Unavailab Andriy Farrell DO Primary Care Provider Unavaila John Velasquez MD Unavailable [phone] Alicia Burnham NP Unavailable [phone] Artemio Tellez Unavailable Unavailable Lou Baptiste MD Primary Care Provider Un available Reason for Visit * Reason Onset Date Comments Testing 12/09/2020 bone density/jo ann mogram Encounter Details Date Type Department Care Team Description 12/09/2020 Telephone Adult Medicine - [address] [address] Steffen Morrissey MD Testing (bone density/mammogram) Social History Tobacco Use Types Packs/Day Years [...] any clubs o r organizations such as spiritism groups, unions, fraternal or athletic groups, or [...] place to sleep or slept in a fci (including now)? No 08/16/2023 Sex Assigned at Date Recorded Not on file Job Start Date Occupation Industry Not on file Not on file Not on file documented as of this encounter Miscellaneous Notes * Telephone Encounter - Steffen Morrissey MD - 12/09/2020 2:28 PM EDT ok * Telephone Encounter - Kelly Espinoza M.A. - 12/09/2020 2:16 PM EDT Tc to pt to see if she had her bone density and mammogram done or does she plan on having it done, she states she just got her covid shot and wants to wait 2 weeks before she goes. Needs a new bone density order as it , pended order for review. documented in this encounter Plan of Treatment Not on file documented as of this encounter Visit Diagnoses Diagnosis Vitamin D deficiency- Primary Unspecified vitamin D deficiency Osteoporosis, unspecified osteoporosis type, unspecified pathological fracture presence documented in this encounter Care Teams Waste Cotton Cleaner Relationship Specialty Start Date End Date Steffen Morrissey MD PCP - General Internal Medicine 11/06/1607/29 Andriy Zimmerman DO [address] [place] [address] PCP - General Internal Medicine 08/17/21 12/04/23 Lou Baptiste MD [address] [facility] [address] [place] [address] PCP - General Internal Medicine 12/05/23 Thang Kang MD [address] [place], [place] [id number] Video Conference Specialist Cardiovascular Disease 08/10/20 Cinthia Molina PA-C [address] [place] [address] Cardiology 09/05/20 03/12/24 John Burleson MD [address] [place] [address] Specialist Cardiology 12/06/21 Alicia Burnham NP [address] [facility] [address] [place] [address] Cardiology 12/06/21 Artemio Tellez [address] [facility] [address] [place] [address] Urology 06/08/22 [facility] urology 10/26/21 documented as of this encounter
--- OUTSIDE RECORDS SUMMARY | 2025-05-24 17:26 | XMS_ITS | Encounter Summary ---
Author Organization [facility] Address [address] [place] [address] Care Team Providers Care Ship'S Engineer Name Role Phone Steffen Morrissey MD Primary Care Provider Unavailable Thang Kang MD Unavailable [phone] Cinthia Molina PA-C Unavailable Unavailab Andriy Farrell DO Primary Care Provider Unavaila John Velasquez MD Unavailable [phone] Alicia Burnham NP Unavailable [phone] Artemio Tellez Unavailable Unavailable Lou Baptiste MD Primary Care Provider Un available Encounter Details Date Type Department Care Team Description 01/10/2018 Information Services Manager Report Medical Records [address] [place] [address] Thang Kang MD 300 [facility] [address] [place] [address] Social History Tobacco Use Types Packs/Day Years [...] often do you attend chur ch or jew services? Never 08/16/2023 Do you belong to any clubs o r organizations such as lutheran groups, unions, fraternal or athletic groups, or [...] place to sleep or slept in a usp (including now)? No 08/16/2023 Sex Assigned at Date Recorded Not on file Job Start Date Occupation Industry Not on file Not on file Not on file documented as of this encounter Plan of Treatment Not on file documented as of this encounter Visit Diagnoses Not on filedocumented in this encounter Care Teams Ship'S Engineer Relationship Specialty Start Date End Date Steffen Morrissey MD PCP - General Internal Medicine 11/06/1607/29 Andriy Zimmerman DO [address] [address] PCP - General Internal Medicine 08/17/21 12/04/23 Lou Baptiste MD [address] [address] PCP - General Internal Medicine 12/05/23 Thang Kang MD [address] [address] Supply Chain Coordinator Cardiovascular Disease 08/10/20 Cinthia Molina PA-C [address] [address] Cardiology 09/05/20 03/12/24 John Burleson MD [address] [address] Specialist Cardiology 12/06/21 Alicia Burnham NP [address] [address] Cardiology 12/06/21 Artemio Tellez [address] [address] Urology 06/08/22 [facility] urology 10/26/21 documented as of this encounter
--- OUTSIDE RECORDS SUMMARY | 2025-05-24 17:26 | XMS_ITS | Encounter Summary ---
Author Organization [facility] Address [address] [place] [address] Care Team Providers Care Tile Mason Name Role Phone Steffen Morrissey MD Primary Care Provider Unavailable Thang Kang MD Unavailable [phone] Cinthia Molina PA-C Unavailable Unavailab Andriy Farrell DO Primary Care Provider Unavaila John Velasquez MD Unavailable [phone] Alicia Burnham NP Unavailable [phone] Artemio Tellez Unavailable Unavailable Lou Baptiste MD Primary Care Provider Un available Encounter Details Date Type Department Care Team Description 05/22/2018 Pipe Fitter Apprentice Report Medical Records [address] [place] [address] Thang Kang MD 300 [facility] [address] [place] [address] Social History Tobacco Use Types Packs/Day Years [...] often do you attend chur ch or faith services? Never 08/16/2023 Do you belong to any clubs o r organizations such as yarsani groups, unions, fraternal or athletic groups, or [...] on filedocumented in this encounter Care Teams Tile Mason Relationship Specialty Start Date End Date Steffen Morrissey MD PCP - General Internal Medicine 11/06/1607/29 Andriy Zimmerman DO [address] [address] PCP - General Internal Medicine 08/17/21 12/04/23 Lou Baptiste MD [address] [address] PCP - General Internal Medicine 12/05/23 Thang Kang MD [address] [address] Lamination Technician Cardiovascular Disease 08/10/20 Cinthia Molina PA-C [address] [address] Cardiology 09/05/20 03/12/24 John Burleson MD [address] [address] Specialist Cardiology 12/06/21 Alicia Burnham NP [address] [address] Cardiology 12/06/21 Artemio Tellez [address] [address] Urology 06/08/22 [facility] urology 10/26/21 documented as of this encounter
--- OUTSIDE RECORDS SUMMARY | 2025-05-24 17:26 | XMS_ITS | Encounter Summary ---
Author Organization [facility] Address [address] [place] [address] Care Team Providers Care Web Interface Developer Name Role Phone Thang Kang MD Unavailable [phone] John Burleson MD Unavailable [phone] Alicia Burnham NP Unavailable [phone] Artemio Tellez Unavailable Unavailable Lou Baptiste MD Primary Care Provider Un available Reason for Visit * Reason Comments E-prescribe Rx Request Encounter Details Date Type Department Care Team Description 04/29/2024 Refill Adult Medicine [facility] [address] [place] [address] Donita Alva PA-C E-prescribe Rx Request Social [...] week 08/16/2023 How often do you attend [facility] or pentecostalism services? Never 08/16/2023 Do you belong to any clubs o r organizations such as yazidism groups, unions, fraternal or athletic groups, or [...] encounter Miscellaneous Notes * Telephone Encounter - John Perez - 04/29/2024 1:16 PM EDT Patient would like script to be: E-PRESCRIBED/FAXED TO PHARMACY WHEN WAS THE PATIENT'S LAST APPOINTMENT IN ADULT MEDICINE? 09/02/23 WHEN WAS THE LAST TIME THE PATIENT SAW THEIR PCP? Same as above Does patient have an upcoming appointment? Yes 05/13/24 (THE MEDICATION REQUESTED IS ON THE MED [...] insurance carrier is: [place] / [place] / Product Type: MEDICARE [id number] documented in this encounter Plan of Treatment Not on file documented as of this encounter Visit Diagnoses Diagnosis Other secondary hypertension documented in this encounter Care Teams Web Interface Developer Relationship Specialty Start Date End Date Lou Baptiste MD [address] [facility] [address] [place] [address] PCP - General Internal Medicine 12/05/23 Thang Kang MD [address] [place], [place] [phone] Rooter Operator Cardiovascular Disease 08/10/20 John Burleson MD [address] [place] [address] Specialist Cardiology 12/06/21 Alicia Burnham NP [address] [facility] [address] [place] [address] Cardiology 12/06/21 Artemio Tellez [address] [facility] [address] [place] [address] Urology 06/08/22 [facility] urology 10/26/21 documented as of this encounter
--- OUTSIDE RECORDS SUMMARY | 2025-05-24 17:26 | XMS_ITS | Encounter Summary ---
Author Organization [facility] Address [address] [place] [address] Care Team Providers Care Data Center Consultant Name Role Phone Steffen Morrissey MD Primary Care Provider Unavailable Thang Kang MD Unavailable [phone] Cinthia Molina PA-C Unavailable Unavailab Andriy Farrell DO Primary Care Provider Unavaila John Velasquez MD Unavailable [phone] Alicia Burnham NP Unavailable [phone] Artemio Tellez Unavailable Unavailable Lou Baptiste MD Primary Care Provider Un available Encounter Details Date Type Department Care Team Description 10/30/2019 Telephone Adult Medicine - [address] [address] Simin Andrade PA-C Social History Tobacco Use Types Packs/Day [...] often do you attend chur ch or yazdanism services? Never 08/16/2023 Do you belong to any clubs o r organizations such as sabianist groups, unions, fraternal or athletic groups, or [...] Miscellaneous Notes * Telephone Encounter - Cait Medrano M.A. - 10/30/2019 1:58 PM EDT Called pt regarding 6 month old order for bone density, left message to return the call documented in this encounter Plan of Treatment Not on file documented as of this encounter Visit Diagnoses Not on filedocumented in this encounter Care Teams Data Center Consultant Relationship Specialty Start Date End Date Steffen Morrissey MD PCP - General Internal Medicine 11/06/1607/29 Andriy Zimmerman, [address] [place] [address] PCP - General Internal Medicine 08/17/21 12/04/23 Lou Baptiste MD [address] [facility] [address] [place] [address] PCP - General Internal Medicine 12/05/23 Thang Kang MD [address] [place] [address] [employer] Team Member Cardiovascular Disease 08/10/20 Cinthia Molina, LYNN [address] [place] [address] Cardiology 09/05/20 03/12/24 John Burleson MD [address] [facility] [address] [place] [address] Specialist Cardiology 12/06/21 Alicia Burnham NP [address] [address] Cardiology 12/06/21 Artemio Tellez [address] [address] Urology 06/08/22 [facility] urology 10/26/21 documented as of this encounter
--- OUTSIDE RECORDS SUMMARY | 2025-05-24 17:26 | XMS_ITS | Encounter Summary ---
Author Organization [facility] Address [address] [place] [address] Care Team Providers Care Boat Loader Helper Name Role Phone Steffen Morrissey MD Primary Care Provider Unavailable Thang Kang MD Unavailable [phone] Cinthia Molina PA-C Unavailable Unavailab Andriy Farrell DO Primary Care Provider Unavaila John Velasquez MD Unavailable [phone] Alicia Burnham NP Unavailable Artemio Tellez Unavailable Unavailable Lou Baptiste MD Primary Care Provider Un available Encounter Details Date Type Department Care Team Description 12/15/2016 Instrument Fitter Report Medical Records [address] [place] [address] Artemio Tellez Social History Tobacco Use Types [...] week 08/16/2023 How often do you attend [facility] or latter-day services? Never 08/16/2023 Do you belong to any clubs o r organizations such as pentecostalism groups, unions, fraternal or athletic groups, or [...] place to sleep or slept in a correction (including now)? No 08/16/2023 Sex Assigned at Date Recorded Not on file Job Start Date Occupation Industry Not on file Not on file Not on file documented as of this encounter Plan of Treatment Not on file documented as of this encounter Visit Diagnoses Not on filedocumented in this encounter Care Teams Boat Loader Helper Relationship Specialty Start Date End Date Steffen Morrissey MD PCP - General Internal Medicine 11/06/1607/29 Andriy Zimmerman, [address] [place] [address] PCP - General Internal Medicine 08/17/21 12/04/23 Lou Baptiste MD [address] [address] PCP - General Internal Medicine 12/05/23 Thang Kang MD [address] [facility] [address] [place] [address] Shipping Receiving Clerk Cardiovascular Disease 08/10/20 Cinthia Molina PA-C [address] [place] [address] Cardiology 09/05/20 03/12/24 John Burleson MD [address] [place] [address] Specialist Cardiology 12/06/21 Alicia Burnham NP [address] [place] [address] Cardiology 12/06/21 Artemio Tellez [address] [place] [address] Urology 06/08/22 [facility] urology 10/26/21 documented as of this encounter
--- OUTSIDE RECORDS SUMMARY | 2025-05-24 17:26 | XMS_ITS | Encounter Summary ---
Author Organization [facility] Address [address] [place] [address] Care Team Providers Care Radio Frequency Design Engineer Name Role Phone Thang Kang MD Unavailable [phone] Cinthia Molina PA-C Unavailable Unavailab Andriy Farrell DO Primary Care Provider Unavaila John Velasquez MD Unavailable [phone] Alicia Burnham NP Unavailable [phone] Artemio Tellez Unavailable Unavailable Lou Baptiste MD Primary Care Provider Un available Encounter Details Date Type Department Care Team Description 10/03/2021 Hospital Medical Records [address] [place] [address] Social History Tobacco Use Types Packs/Day Years [...] week 08/16/2023 How often do you attend [facility] or muslim services? Never 08/16/2023 Do you belong to any clubs o r organizations such as latter day groups, unions, fraternal or athletic groups, or [...] on filedocumented in this encounter Care Teams Radio Frequency Design Engineer Relationship Specialty Start Date End Date Andriy Zimmerman DO [address] [address] PCP - General Internal Medicine 08/17/21 12/04/23 Lou Baptiste MD [address] [address] PCP - General Internal Medicine 12/05/23 Thang Kang MD [address] [address] Mold Maker Plaster Cardiovascular Disease 08/10/20 Cinthia Molina PA-C [address] [address] Cardiology 09/05/20 03/12/24 John Burleson MD [address] [address] Specialist Cardiology 12/06/21 Alicia Burnham NP [address] [phone] Cardiology 12/06/21 Artemio Tellez [address] [address] Urology 06/08/22 [facility] urology 10/26/21 documented as of this encounter
--- OUTSIDE RECORDS SUMMARY | 2025-05-24 17:26 | XMS_ITS | Encounter Summary ---
Author Organization [facility] Address [address] [place] [address] Care Team Providers Care Retail Coverage Merchandiser Name Role Phone Steffen Morrissey MD Primary Care Provider Unavailable Thang Kang MD Unavailable [phone] Cinthia Molina PA-C Unavailable Unavailab Andriy Farrell DO Primary Care Provider Unavaila John Velasquez MD Unavailable [phone] Alicia Burnham NP Unavailable [phone] Artemio Tellez Unavailable Unavailable Lou Baptiste MD Primary Care Provider Un available Encounter Details Date Type Department Care Team Description 04/22/2018 Orders Only Medical Records [address] [place] [address] Thang Kang MD 300 [facility] [address] [place] [address] Social History Tobacco Use Types Packs/Day Years [...] place to sleep or slept in a long term (including now)? No 08/16/2023 Sex Assigned at Date Recorded Not on file Job Start Date Occupation Industry Not on file Not on file Not on file documented as of this encounter Plan of Treatment Not on file documented as of this encounter Procedures Procedure Name Priority Date/Time Associated Diagnosis Comments OUTSIDE LOOP RECORDER Routine 03/13/2018 documented in this encounter Results * OUTSIDE LOOP RECORDER (03/13/2018) Thang Kang MD CARDIOLOGY documented in this encounter Visit Diagnoses Not on filedocumented in this encounter Care Teams Retail Coverage Merchandiser Relationship Specialty Start Date End Date Steffen Morrissey MD PCP - General Internal Medicine 11/06/1607/29 Andriy Zimmerman, [address] [place] [address] PCP - General Internal Medicine 08/17/21 12/04/23 Lou Baptiste MD [address] [place] [address] PCP - General Internal Medicine 12/05/23 Thang Kang MD [address] [place] [address] Legal Executive Cardiovascular Disease 08/10/20 Cinthia Molina, PAMarckC [address] [address] Cardiology 09/05/20 03/12/24 Jonh Burleson MD [address] [phone] Specialist Cardiology 12/06/21 Alicia Burnham NP [address] [address] Cardiology 12/06/21 Artemio Tellez [address] [address] Urology 06/08/22 [facility] urology 10/26/21 documented as of this encounter
--- OUTSIDE RECORDS SUMMARY | 2025-05-24 17:26 | XMS_ITS | Encounter Summary ---
Author Organization [facility] Address [address] [place] [address] Care Team Providers Care Cardiopulmonary Supervisor Name Role Phone Thang Kang MD Unavailable [phone] Cinthia Molina PA-C Unavailable Unavailab Andriy Farrell DO Primary Care Provider Unavaila John Velasquez MD Unavailable [phone] Alicia Burnham NP Unavailable [phone] Artemio Tellez Unavailable Unavailable Lou Baptiste MD Primary Care Provider Un available Encounter Details Date Type Department Care Team Description 10/19/2021 Production Welding Supervisor Report Medical Records [address] [place] [address] Thang Kang MD 300 [facility] [address] [place] [address] Social History Tobacco Use Types Packs/Day Years [...] How often do you attend [facility] or yazidism services? Never 08/16/2023 Do you belong to [...] suspected to have Coronavirus/COVID-19? No / Unsure 10/19/2021 1:58 PM EDT documented as of this encounter Plan of Treatment Not on file documented as of this encounter Visit Diagnoses Not on filedocumented in this encounter Care Teams Cardiopulmonary Supervisor Relationship Specialty Start Date End Date Andriy Zimmerman, [address] [place] [address] PCP - General Internal Medicine 08/17/21 12/04/23 Lou Baptiste MD [address] [facility] [address] [place] [address] PCP - General Internal Medicine 12/05/23 Thang Kang MD [address] [place] [address] Executive Legal Secretary Cardiovascular Disease 08/10/20 Cinthia Molina, LYNN [address] [place] [address] Cardiology 09/05/20 03/12/24 John Burleson MD [address] [place] [address] Specialist Cardiology 12/06/21 Alicia Burnham NP [address] [address] Cardiology 12/06/21 Artemio Tellez [address] [address] Urology 06/08/22 [facility] urology 10/26/21 documented as of this encounter
--- OUTSIDE RECORDS SUMMARY | 2025-05-24 17:26 | XMS_ITS | Encounter Summary ---
Author Organization [facility] Address [address] [place] [address] Care Team Providers Care Gastroenterologist Name Role Phone Thang Kang MD Unavailable [phone] John Burleson MD Unavailable [phone] Alicia Burnham NP Unavailable [phone] Artemio Tellez Unavailable Unavailable Lou Baptiste MD Primary Care Provider Un available Encounter Details Date Type Department Care Team Description 04/24/2024 Refill Adult Medicine [facility] [address] [place] [address] Donita Alva PA-C Social History Tobacco Use [...] week 08/16/2023 How often do you attend [facility] or mandaen services? Never 08/16/2023 Do you belong to any clubs o r organizations such as sikh groups, unions, fraternal or athletic groups, or [...] (HCC) documented in this encounter Care Teams Gastroenterologist Relationship Specialty Start Date End Date Lou Baptiste MD [address] [address] PCP - General Internal Medicine 12/05/23 Thang Kang MD [address] [address] Lotus Notes Administrator Cardiovascular Disease 08/10/20 John Burleson MD [address] [address] Specialist Cardiology 12/06/21 Alicia Burnham NP [address] [address] Cardiology 12/06/21 Artemio Tellez [address] [address] Urology 06/08/22 [facility] urology 10/26/21 documented as of this encounter
== END 2025-05-24 14:24 | disposition home or self-care (01) ==
LOC: HO.HMCFM 13:45
PROVIDERS: PCP Internal Medicine; Visit Provider Internal Medicine
DX: E11.36 Type 2 diabetes mellitus with diabetic cataract (principal); Z95.5 Presence of coronary angioplasty implant and graft; I48.0 Paroxysmal atrial fibrillation

== ENCOUNTER → 2025-05-24 13:44 | Outpatient (BNVA) | payer MEDICARE, MEDICAID, SELFPAY | PROVIDERS: PCP Internal Medicine; Visit Provider Internal Medicine | DX: E11.36 Type 2 diabetes mellitus with diabetic cataract (principal); H26.9 Unspecified cataract; I48.0 Paroxysmal atrial fibrillation; Z79.84 Long term (current) use of oral hypoglycemic drugs; Z79.899 Other long term (current) drug therapy; Z95.5 Presence of coronary angioplasty implant and graft | CPT/HCPCS: 99212 ==